=== PATIENT | female | born 1985 | race Caucasian/White ===

== ENCOUNTER 2020-04-30 09:55 | Emergency (ER) | payer OTHER, SELFPAY ==
--- NOTE | 2020-04-30 10:17 | ED.GENADULT ---
HPI - General Adult General Chief complaint: Upper Respiratory Infection Stated complaint: Swollen Throat Time Seen by Provider: 04/30/20 10:17 Source: patient Mode of arrival: ambulatory Limitations: no limitations History of Present Illness HPI narrative: 34-year-old female patient presents to the [facility] with complaints of left ear pain and left-sided sore throat x4 days. Patient states she was diagnosed with Covid on April 16. 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 Patient states that at the time that she was tested positive she had some body aches but not any other severe symptoms. Patient denies any fevers with her symptoms today. Patient states has been taking eldn-jle-pzeolgd DayQuil, NyQuil, Tylenol, ibuprofen and Sudafed for her symptoms. Related Data Home Medications Medication Instructions Recorded Confirmed amitriptyline 100 mg PO DAILY 04/30/20 04/30/20 amlodipine [Norvasc] 10 mg PO DAILY 04/30/20 04/30/20 metformin 1,000 mg PO BID 04/30/20 04/30/20 pisdogyteazv-ksn-bfzk-FA-vit K 1 tablet PO DAILY 04/30/20 04/30/20 [Adults Multivitamin] nebivolol [Bystolic] 10 mg PO DAILY 04/30/20 04/30/20 Allergies Allergy/AdvReac Type Severity Reaction Status Date / Time lisinopril AdvReac Cough Verified 04/30/20 10:39 losartan AdvReac Chest Pain Verified 04/30/20 10:39 Review of Systems Review of Systems: Narrative: CONSTITUTIONAL: Denies fever, chills, or sweats. EYES: Denies visual changes, redness, or discharge. ENT: Denies rhinorrhea, congestion, positive sore throat, positive left ear otalgia. CARDIOVASCULAR: Denies chest pain, palpitations, or edema. RESPIRATORY: Denies cough or dyspnea. GASTROINTESTINAL: Denies abdominal pain, nausea, vomiting, or diarrhea. GENITOURINARY: Denies dysuria or hematuria. SKIN: Denies rash or itching. MUSCULOSKELETAL: Denies back pain, joint pain, or myalgia. NEUROLOGIC: Denies headache, numbness, or weakness. PSYCHIATRIC: Denies anxiety or depression. FORMERLY [facility] Past Medical History Medical History (Updated 04/30/20 @ 10:52 by LUZ Lee) Hypertension Surgical History Surgical History (Updated 04/30/20 @ 10:52 by LUZ Lee) Hx of cholecystectomy Social History Social History (Updated 04/30/20 @ 10:52 by LUZ Lee) Smoking status: Current every day smoker Comments At the time of my signature I agree with nursing past medical history, surgical, social, and family history. There is no relevant family history pertinent to the presenting complaint. Exam Narrative: Exam Narrative: GENERAL: Well-appearing, well-nourished, and in no acute distress. HEAD: Normocephalic, atraumatic. EYES: PERRLA and EOMI. ENT: Nares clear, no rhinorrhea or epistaxis. Mucous membranes moist. Posterior pharynx with erythema and 2+ tonsil enlargement with exudates noted to the left tonsil. Bilateral TMs with erythema and slight bulging present. NECK: Supple. No lymphadenopathy CHEST: Clear to auscultation. No respiratory distress. Patient able talk in clear complete sentences. HEART: Regular rate and rhythm. No murmur heard. Normal peripheral pulses. ABDOMEN: Soft, nontender, nondistended, normal active bowel sounds. EXTREMITIES: Normal range of motion. No edema. SKIN: Warm, dry, no rash. NEURO: No focal deficits. Alert and oriented x3. Course Vital Signs Vital signs: Vital signs reviewed Medical Decision Making Differential Diagnosis Differential Diagnosis: Differential diagnosis: Viral pharyngitis, pharyngitis, group A strep, infectious mononucleosis, gonococcal pharyngitis, exudative pharyngitis, oral candidiasis. Chronic allergies, postnasal drip, GERD, abscess formation, but glottitis, retropharyngeal abscess formation, or airway obstruction. Notify patient that her bedside strep test today is negative. Discussed with patient that it does appear that she has bilateral ear infection therefore we
[2020-04-30 10:25] VITALS: BP 130/90; PULSE 80; RESP 20; TEMP 36.7; O2SAT 97
[2020-04-30 10:45] VITALS: BP 130/90; PULSE 80; RESP 20; TEMP 36.7; O2SAT 97
== END 2020-04-30 10:50 | disposition home or self-care (01) ==
PROVIDERS: Emergency Provider Nurse Practitioner Family
DX: H66.93 Otitis media, unspecified, bilateral (principal); J02.9 Acute pharyngitis, unspecified; Z86.16 Personal history of COVID-19; F17.200 Nicotine dependence, unspecified, uncomplicated; I10 Essential (primary) hypertension
CPT/HCPCS: 87081; 87880; 99213; G0463

== ENCOUNTER → 2020-08-17 12:20 | Outpatient (CLI) | payer OTHER, SELFPAY ==
--- NOTE | ~2020-08-17 | XR_ITS ---
EXAMINATION: XR knee LT 2V DATE: 08/17/2020 12:46 INDICATION: Left knee pain. TECHNIQUE: 2 views of left knee standing were obtained. COMPARISON: None. FINDINGS: Bone alignment is normal. No fracture. There is mild osteoarthritis of medial and lateral c ompartments and moderate osteoarthritis of patellofemoral compartment. There is a small knee joint ef fusion. IMPRESSION: 1. Moderate left knee osteoarthritis. 2. Small knee joint effusion. Reviewed, dictated and finalized at location B.
== END ==
DX: M25.462 Effusion, left knee (principal); M17.12 Unilateral primary osteoarthritis, left knee
CPT/HCPCS: 73560

== ENCOUNTER 2020-12-17 11:33 | Outpatient (CLI) | payer OTHER, SELFPAY ==
--- NOTE | ~2020-12-17 | US_ITS ---
EXAMINATION: XR lg joint inject/asp w image, US knee asp inj w image LT DATE: 12/17/2020 13:25 (accession [id number]), 12/17/2020 15:55 (accession [id number]) INDICATION: Left knee pain with patellofemoral arthritis. TECHNIQUE: A time-out was performed to verify the patient's name, date of , and procedure to b e performed. The procedure including the risks, benefits, and alternatives was discussed with the pat ient. Risks discussed included bleeding and infection. The patient understood the risks and agreed to proceed. The skin overlying the lateral aspect of the left knee joint was prepped and draped in usu al sterile fashion. Anesthetic was administered with 1% lidocaine subcutaneously. Initial attempt at advancing a 22 G needle utilizing fluoroscopic guidance was complicated by patient body habitus with limited ability to palpate or move the patella. Was therefore elected to utilize ultrasound to advan ce the needle into the lateral aspect of the patellofemoral articulation. Fluoroscopy following injec tion of 10 mL of Omnipaque 240 confirmed intra-articular position of the needle. Subsequently, injec pedro consisting of 4 mL of a 3:1 mixture of 1% lidocaine: 80 mg/mL Depo-Medrol for a total dose of 80 mg Depo-Medrol was instilled. Washout of contrast was seen confirming intra-articular administration . The needle was removed and the entry site was cleaned and dressed. There were no immediate complic ations. Fluoroscopy exposure time was 1.0 minutes. The total number of fluoroscopic images was 2. 4 u ltrasound images were also recorded. FINDINGS: Ultrasound images demonstrate the needle advanced to the lateral margin of the patellofemor al articulation. Real-time fluoroscopy demonstrates the needle and contrast in the left knee joint. P atient's pain prior to procedure:07/14. Patient's pain following the procedure: 05/16. IMPRESSION: 1. Left knee joint injection of local anesthetic and steroid with decrease in the patient's presentin g pain. Reviewed, dictated and finalized at location A. IMPRESSION: 1. Left knee joint injection of local anesthetic and steroid with decrease in t he patient's presenting pain.
== END 2020-12-17 11:34 | disposition home or self-care (01) ==
PROVIDERS: Visit Provider Orthopaedic Surgery
DX: M25.562 Pain in left knee (principal); M17.12 Unilateral primary osteoarthritis, left knee
CPT/HCPCS: 20610; 20611; 77002; J1040; Q9966

== ENCOUNTER 2021-01-04 11:12 | Emergency (ER) | payer OTHER, SELFPAY ==
[2021-01-04 11:25] VITALS: BP 156/94; PULSE 79; RESP 16; TEMP 36.6; O2SAT 99
--- NOTE | 2021-01-04 12:30 | ED.URI ---
HPI - URI/Sore Throat General Chief Complaint: Upper Respiratory Infection Stated Complaint: sore throat/ ear pain Time Seen by Provider: 01/04/21 12:25 Source: patient and RN notes reviewed Mode of arrival: ambulatory Limitations: no limitations History of Present Illness HPI Narrative: 35-year-old female presents to [facility] with complaints of right-sided sore throat, right ear pain which radiates to the jaw since yesterday. Patient has had no fever, denies any cough,or nasal drainage, she reports she was Covid tested at work this morning with negative results. Patient states that she has had COVID vaccinations. Patient states increased pain to her throat with swallowing rates pain as 6/10 continuous soreness, has taken Ibuprofen for her discomfort. MD elicited complaint: sore throat and other (ear pain) Related Data Home Medications Medication Instructions Recorded Confirmed amitriptyline 100 mg PO DAILY 04/30/20 01/04/21 amlodipine [Norvasc] 10 mg PO DAILY 04/30/20 01/04/21 metformin 1,000 mg PO BID 04/30/20 01/04/21 knealmmcalbr-cmr-ljjw-FA-vit K 1 tablet PO DAILY 04/30/20 01/04/21 [Adults Multivitamin] nebivolol [Bystolic] 10 mg PO DAILY 04/30/20 01/04/21 Allergies Allergy/AdvReac Type Severity Reaction Status Date / Time lisinopril AdvReac Cough Verified 01/04/21 11:40 losartan AdvReac Chest Pain Verified 01/04/21 11:40 Review of Systems Review of Systems: CONSTITUTIONAL: Denies fever, chills, or sweats. EYES: Denies visual changes, redness, or discharge. ENT: Denies rhinorrhea, congestion,positive for right sided sore throat,right otalgia and right jaw pain. CARDIOVASCULAR: Denies chest pain, palpitations, or edema. RESPIRATORY: Denies cough or dyspnea. GASTROINTESTINAL: Denies abdominal pain, nausea, vomiting, or diarrhea. GENITOURINARY: Denies dysuria or hematuria. SKIN: Denies rash or itching. MUSCULOSKELETAL: Denies back pain, joint pain, or myalgia. NEUROLOGIC: Denies headache, numbness, or weakness. PSYCHIATRIC Positive history of anxiety or depression. All systems reviewed & are unremarkable except as noted in HPI and below PMFSH Past Medical History Medical History Anxiety History of PCOS Hypertension Surgical History Surgical History (Updated 01/04/21 @ 12:37 by Kenyetta Hogue NP) Hx of cholecystectomy S/P wisdom tooth extraction Family History Family History (Updated 01/07/21 @ 13:55 by Kenyetta Hogue NP) Other No significant family history Social History Social History (Updated 01/07/21 @ 13:55 by Kenyetta Hogue NP) Smoking status: Former smoker Tobacco type: cigarettes Additional smoking assessment comments: quit 12/2020 Alcohol intake: current Alcohol use details: social Substance use: never Living arrangements: with family Gender identity (if verbalized by the patient): Female Comments At time of signature, agree with nursing past medical, surgical, social and family history. There is no relevant family history pertinent to the presenting complaint Exam Narrative: GENERAL: Well-appearing, well-nourished, and in no acute distress. HEAD: Normocephalic, atraumatic. EYES: PERRLA and EOMI. ENT: Nares clear, no rhinorrhea or epistaxis. Mucous membranes moist.TM's normal with good light reflex, throat red with noted exudates on bilateral tonsils with tonsils red and swollen. NECK: Supple. Lymphadenopathy CHEST: Clear to auscultation. No respiratory distress.SAO2 99% on room air HEART: Regular rate and rhythm. No murmur heard. Normal peripheral pulses. ABDOMEN: Soft, nontender, nondistended, normal active bowel sounds. EXTREMITIES: Normal range of motion. No edema.no states myalgia. SKIN: Warm, dry, no rash. NEURO: No focal deficits. Alert and oriented x3. Course Vital Signs Vital signs: Vital Signs Temperature 36.6 C 01/04/21 11:25 Pulse Rate 79 01/04/21 11:25 Respiratory Ra
== END 2021-01-04 12:59 | disposition home or self-care (01) ==
PROVIDERS: Emergency Provider Registered Nurse
DX: J03.90 Acute tonsillitis, unspecified (principal); Z87.891 Personal history of nicotine dependence; I10 Essential (primary) hypertension; E28.2 Polycystic ovarian syndrome; F41.9 Anxiety disorder, unspecified
CPT/HCPCS: 87081; 87880; 99213; G0463

== ENCOUNTER 2021-04-03 13:07 | Outpatient (CLI) | payer OTHER, SELFPAY ==
--- NOTE | ~2021-04-03 | XR_ITS ---
EXAMINATION: XR lg joint inject/asp w image DATE: 04/03/2021 14:56 INDICATION: Left knee arthritis and pain TECHNIQUE: A time-out was performed to verify the patient's name, date of , and procedure to b e performed. The procedure including the risks, benefits, and alternatives was discussed with the pat ient. Risks discussed included bleeding and infection. The patient understood the risks and agreed to proceed. The skin overlying the lateral side of the left knee joint was prepped and draped in usual sterile fashion. Anesthetic was administered with 1% lidocaine subcutaneously. A 22 G needle was a dvanced under fluoroscopic guidance into the joint. Injection of small amount of gas and 6 mL of Om nipaque 240 confirmed intra-articular position of the needle. Subsequently at the instruction of Dr. Ridley, 1 vial of Monovisc provided in sterile packaging by the patient was instilled. Washout of c ontrast was seen confirming intra-articular administration. The needle was removed and the entry site was cleaned and dressed. There were no immediate complications. Fluoroscopy exposure time was 0.4 mi nutes. The total number of images was 2. Total DAP was 1.969 mGycm^2. FINDINGS: Real-time fluoroscopy demonstrates the needle and contrast in the suprapatellar pouch of th e left knee joint. As previously there is suggestion of frog like filling defects consistent with syn ovitis. Patient's pain prior to procedure:07/14. Patient's pain following the procedure: 04/15. IMPRESSION: 1. Left knee joint injection of 1 vial of Monovisc with decrease in the patient's presenting pain. Reviewed, dictated and finalized at location A. 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 Left knee joint injection of 1 vial of Monovisc with decrease in the patient 's presenting pain.
== END 2021-04-03 13:08 | disposition home or self-care (01) ==
PROVIDERS: Visit Provider Orthopaedic Surgery
DX: M25.562 Pain in left knee (principal)
CPT/HCPCS: 20610; 77002; Q9966

== ENCOUNTER 2023-06-06 12:33 | Emergency (ER) | payer OTHER, SELFPAY ==
--- NOTE | ~2023-06-06 | XR_ITS ---
EXAMINATION: XR chest 2V DATE: 06/06/2023 13:44 INDICATION: Cough and wheezing. TECHNIQUE: Frontal and lateral views of the chest were obtained. COMPARISON: None. FINDINGS: There is no pneumonia, pleural effusion, or pneumothorax. The heart size is normal. IMPRESSION: 1. No acute cardiopulmonary disease. Reviewed, dictated and finalized at location A. 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
[2023-06-06 12:42] VITALS: BP 147/89; PULSE 73; RESP 16; TEMP 36.6; O2SAT 100
--- NOTE | 2023-06-06 13:37 | ED.GENADULT ---
HPI - General Adult General Chief complaint: Upper Respiratory Infection Stated complaint: Chest Congestion/Cough Source: patient Mode of arrival: ambulatory Limitations: no limitations History of Present Illness HPI narrative: Patient presents for evaluation of cough. She indicates she tested positive for COVID on 05/24/2023. Primary complaints at that time were sinus congestion fatigue. Those symptoms have improved. She now has productive cough of clear sputum. She denies any fever, chills, nausea, vomiting, diarrhea, shortness of breath. She smokes a few cigarettes per day but is trying to quit. She tried mucinex but it made her symptoms worse. Related Data Home Medications Medication Instructions Recorded Confirmed amitriptyline 100 mg tablet 100 mg PO DAILY 04/30/20 06/06/23 amlodipine 10 mg tablet (Norvasc) 10 mg PO DAILY 04/30/20 06/06/23 metformin 1,000 mg tablet 1,000 mg PO BID 04/30/20 06/06/23 multivit with minerals-iron 18 1 tablet PO DAILY 04/30/20 06/06/23 mg-folic ac 400 mcg-vit K 25 mcg tablet (Adults Multivitamin) nebivolol 10 mg tablet (Bystolic) 10 mg PO DAILY 04/30/20 06/06/23 atorvastatin 40 mg tablet 40 mg PO DAILY 06/06/23 06/06/23 pantoprazole 40 mg tablet,delayed 40 mg PO DAILY 06/06/23 06/06/23 release semaglutide 2 mg/dose (8 mg/3 mL) 2 mg subcut WEEKLY 06/06/23 06/06/23 subcutaneous pen injector (Ozempic) Allergies Allergy/AdvReac Type Severity Reaction Status Date / Time losartan AdvReac Severe Chest Pain Verified 06/06/23 13:27 lisinopril AdvReac Intermediate Cough Verified 06/06/23 13:27 Review of Systems Review of Systems: CONSTITUTIONAL: Denies fever, chills, or sweats. EYES: Denies visual changes, redness, or discharge. ENT: Denies rhinorrhea, congestion, sore throat, or otalgia. CARDIOVASCULAR: Denies chest pain, palpitations, or edema. RESPIRATORY: Reports productive cough clear sputum. Denies shortness of breath GASTROINTESTINAL: Denies abdominal pain, nausea, vomiting, or diarrhea. GENITOURINARY: Denies dysuria or hematuria. SKIN: Denies rash or itching. MUSCULOSKELETAL: Denies back pain, joint pain, or myalgia. NEUROLOGIC: Denies headache, numbness, dizziness, or weakness. PSYCHIATRIC: Denies anxiety or depression. 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 HEAD: Normocephalic, atraumatic. EYES: PERRLA and EOMI. ENT: Nares clear, no rhinorrhea or epistaxis. Mucous membranes moist. Oropharynx without tonsillar hypertrophy exudate or other lesions. Bilateral TMs pearly cleary nonbulging NECK: Supple. No adenopathy or masses. No carotid bruits or JVD CHEST: Clear to auscultation. No respiratory distress. No wheezes rales or rhonchi HEART: Regular rate and rhythm. No murmur heard. Normal peripheral pulses. ABDOMEN: Soft, nontender, nondistended, normal active bowel sounds. EXTREMITIES: Normal range of motion. No edema. SKIN: Warm, dry, no rash. NEURO: No focal d
== END 2023-06-06 14:22 | disposition home or self-care (01) ==
PROVIDERS: Emergency Provider Nurse Practitioner; PCP Family Medicine
DX: J06.9 Acute upper respiratory infection, unspecified (principal); Z87.891 Personal history of nicotine dependence; I10 Essential (primary) hypertension; E28.2 Polycystic ovarian syndrome
CPT/HCPCS: 71046; 99213; G0463

== ENCOUNTER 2023-06-12 08:02 | Emergency (ER) | payer OTHER, SELFPAY ==
[2023-06-12 08:10] VITALS: BP 130/77; PULSE 88; RESP 18; TEMP 36.7; O2SAT 99
--- NOTE | 2023-06-12 08:35 | ED.URI ---
HPI - URI/Sore Throat General Chief Complaint: Upper Respiratory Infection Stated Complaint: Ear Pain/Sore Throat Time Seen by Provider: 06/12/23 08:15 Source: patient Mode of arrival: ambulatory Limitations: no limitations History of Present Illness HPI Narrative: 38 year female presents with complaint mild nasal congestion, postnasal drainage, sore throat, throat swelling, bilateral ear pain for 2 days. Afebrile. Patient reports that she had COVID mid May and has well since. Was seen here last week and given albuterol inhaler and benzonatate, reports cough improved. All systems reviewed and negative except as noted above. Related Data Home Medications Medication Instructions Recorded Confirmed amitriptyline 100 mg tablet 100 mg PO DAILY 04/30/20 06/06/23 amlodipine 10 mg tablet (Norvasc) 10 mg PO DAILY 04/30/20 06/06/23 metformin 1,000 mg tablet 1,000 mg PO BID 04/30/20 06/06/23 multivit with minerals-iron 18 1 tablet PO DAILY 04/30/20 06/06/23 mg-folic ac 400 mcg-vit K 25 mcg tablet (Adults Multivitamin) nebivolol 10 mg tablet (Bystolic) 10 mg PO DAILY 04/30/20 06/06/23 atorvastatin 40 mg tablet 40 mg PO DAILY 06/06/23 06/06/23 pantoprazole 40 mg tablet,delayed 40 mg PO DAILY 06/06/23 06/06/23 release semaglutide 2 mg/dose (8 mg/3 mL) 2 mg subcut WEEKLY 06/06/23 06/06/23 subcutaneous pen injector (Ozempic) Allergies Allergy/AdvReac Type Severity Reaction Status Date / Time losartan AdvReac Severe Chest Pain Verified 06/06/23 13:27 lisinopril AdvReac Intermediate Cough Verified 06/06/23 13:27 Review of Systems Review of Systems: CONSTITUTIONAL: Denies fever, chills, or sweats. EYES: Denies visual changes, redness, or discharge. ENT: Reports rhinorrhea, congestion, sore throat, bilateral ear pain. CARDIOVASCULAR: Denies chest pain, palpitations, or edema. RESPIRATORY: Denies cough or dyspnea. GASTROINTESTINAL: Denies abdominal pain, nausea, vomiting, or diarrhea. GENITOURINARY: Denies dysuria or hematuria. SKIN: Denies rash or itching. MUSCULOSKELETAL: Denies back pain, joint pain, or myalgia. NEUROLOGIC: Denies headache, numbness, or weakness. PSYCHIATRIC: Denies anxiety or depression. All other systems reviewed are negative, except as documented in HPI. 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 There is no relevant family history pertinent to the presenting complaint. Exam Narrative: GENERAL: This is a well-nourished, well-developed patient, in no apparent distress. HEAD: normocephalic, atraumatic. EYES: PERRL. Sclera clear/white. Vision is grossly intact. EARS: External ears normal, auditory canals clear and without drainage, fluid bilateral TMs with mild bulging and erythema, no perforation bilaterally. Hearing grossly intact. NOSE: External nose normal with clear nasal drainage with congestion, erythema and swelling to bilateral nares. THROAT: Mucous membranes moist, erythe
== END 2023-06-12 08:30 | disposition home or self-care (01) ==
PROVIDERS: Emergency Provider Nurse Practitioner Family; PCP Family Medicine
DX: H65.03 Acute serous otitis media, bilateral (principal); J02.9 Acute pharyngitis, unspecified; I10 Essential (primary) hypertension; F41.9 Anxiety disorder, unspecified; F17.210 Nicotine dependence, cigarettes, uncomplicated
CPT/HCPCS: 87081; 87880; 99213; G0463

== ENCOUNTER 2024-07-30 14:13 | Emergency (ER) | payer SELFPAY ==
--- OUTSIDE RECORDS SUMMARY | 2024-07-30 14:16 | XMS_ITS | Clinical Summary ---
Author Organization [facility] Address [address] [place] [address] Phone Care Team Providers Care Sports Equipment Supervisor Name Role Phone Tony Patel MD Primary Care Provider [phone] Dilan Turk MD Unavailable Suly Gerber APRN, FUR DRUMMER Unavailable Mita Avila CLINICAL OFFICE TECHNICIAN, FUR DRUMMER Unavailable [phone] Allergies Active Allergy Reactions Criticality Noted Date Comments Brassica Oleracea Shortness of Breath,Rash,Swelling High 12/16/2018 Trouble breathing Flavoring Agent (Non-Screening) Hives,Rash High 12/16/2018 Grapefruit Extract Hives,Rash,Itching High 9 Lisinopril Other (see Comments) High 03/10/2017 cough Other reaction(s): Cough Losartan Palpitations,Other (see Comments) High 03/10/2017 Other reaction(s): Headache, Nausea and/or Vomiting Makes her feel like a heart attack Hypertension worsened. Other-Food Allergen (Not Found In Search) Hives,Rash,Itching High 05/06/2020 Cauliflower Red Dye #40 (Allura Red) Diarrhea High 03/17/2023 Wasp Venom Other (see Comments),Shortness of Breath,Swelling High 11/04/2008 Medications multi-vitamins (Multivitamin Adult) Tablet 3 Active Cholecalciferol (Vitamin D) 2000 UNIT Tablet 2 Active atorvastatin (LIPITOR) 40 MG Tablet 2 Active amitriptyline (ELAVIL) 100 MG Tablet Take 100 mg by mouth. 9 Active acetaminophen (TYLENOL) 500 MG Tablet Take 500-1,000 mg by mouth every 6 hours as needed. 1 Active IBUPROFEN PO Take by mouth. Ac tive nicotine (NICODERM CQ) 21 MG/24HR PATCH 24 HRIndications:T obacco abuse 1 Patch by Transdermal route every 24 hours for 45 days. 45 Patch 3 Active Additional Information Patient not taking.Reported on 04/02/2023 nicotine (NICODERM CQ) 14 MG/24HR PATCH 24 HRIndications:T obacco abuse 1 Patch by Transdermal route every 24 hours for 14 days. 14 Patch 4 Active Additional Information Patient not taking.Reported on 04/02/2023 nicotine (NICODERM CQ) 7 MG/24HR PATCH 24 HRIndications:T obacco abuse 1 Patch by Transdermal route every 24 hours for 14 days. 14 Patch 4 Active Additional Information Patient not taking.Reported on 04/02/2023 colestipol (COLESTID) 1 GM TabletIndicatio ns:Watery diarrhea Take 1 Tablet by mouth 2 times daily. 90 Tablet 3 Active Additional Information Patient not taking.Reported on 2024 metFORMIN (GLUCOPHAGE) 500 MG Tablet Take 1 Tablet by mouth 2 times daily. 180 Tablet 1 4 Active albuterol 108 (90 Base) MCG/ACT Aerosol Solution take 2 Puffs by inhalation every 6 hours as needed for Wheezing or Cough. 18 g 1 4 Active Tirzepatide (Mounjaro) 10 MG/0.5ML Solution Auto-injector 10 mg by Subcutaneous route once a week. 6 mL 5 Active amitriptyline (ELAVIL) 100 MG Tablet Take 1 Tablet by mouth nightly. 90 Tablet 3 5 Active amLODIPine (NORVASC) 10 MG Tablet Take 1 Tablet by mouth daily. 90 Tablet 3 5 Active atorvastatin (LIPITOR) 40 MG Tablet Take 1 Tablet by mouth daily. 90 Tablet 3 5 Active cyclobenzaprine (FLEXERIL) 10 MG Tablet Take 1 Tablet by mouth 3 times daily as needed for Muscle spasms. 30 Tablet 5 Active Nebivolol HCl 10 MG Tablet Take 1 Tablet by mouth daily. 90 Tablet 3 5 Active pantoprazole (PROTONIX) 40 MG Tablet Delayed Response Take 1 Tablet by mouth daily. 90 Tablet 3 5 Active Active Problems Problem Noted Date Diagnosed Date Anxiety 2024 Hyperlipidemia 12/01/2023 COVID-19 05/26/2023 PCOS (polycystic ovarian syndrome) 03/24/2023 Class 3 severe obesity due t o excess calories with serious comorbidity and body mass index (BMI) of 60.0 to 69.9 in adult 03/24/2023 Type 2 diabetes mellitus wit hout complication, without long-term current use of insulin 03/24/2023 Tobacco abuse 03/24/2023 Watery diarrhea 03/24/2023 Nausea and vomiting 03/24/2023 Primary hypertension 03/24/2023 Encounters Date Type Department Care Team Description 06/06/2024 Results [facility] [address] [place] [address] Tony Patel MD LIPID PANEL 2024 10:30 AM NURSE COMPANION Office Visit [facility] [address] [place] [address] Tony Patel MD Anxiety (Primary Dx); Primary hypertension; Hyperlipidemia, unspecified hyperlipidemia type Discharge Disposition: Discharged to home or Selfcare 2024 9:45 AM NURSE COMPANION Office Visit [facility] Endocrinology [facility] [address] [facility] [place] [address] Dilan Turk MD Type 2 diabetes mellitus without complication, without long-term current use of insulin (HCC) (Primary Dx); Class 3 severe obesity due to excess calories with serious comorbidity and body mass index (BMI) of 60.0 to 69.9 in adult (HCC); Medication dose changed; Medication side effect Discharge Disposition: Discharged to home or Selfcare 06/01/2024 Travel 05/27/2024 Refill [facility] [address] [place] [address] Tony Patel MD Medication Refill 05/19/2024 Refill [facility] [address] [place] [address] Tony Patel MD Medication Refill 05/18/2024 Telephone [facility] [address] [place] [phone] Tony Patel MD Advice Only from Last 3 Months Immunizations Immunization Administration Dates Next Due Covid-19, Mrna, Lnp-s, Pf, 1 00 Mcg Or 50 Mcg Dose (MODERNA) 02/05/2021,06/18/2020,05/24/2020 DTAP VACCINE 06/06/2008,10/23/1995,10/19/1990 Hepatitis B Vaccine 02/19/2009,08/12/2005 Inactivated Polio Vaccine 10/23/1995,10/19/1990 Influenza Vaccine,unspecified Formulation 2023,02/04/2022,01/04/2017 MMR Vaccine 10/23/1995 TB Skin Test 07/28/2016,07/21/2016 TD VACCINE 06/20/2008 TDAP Vaccine 05/03/2018,06/06/2008 Td, Unspecified Formulation 06/20/2008 Tuberculin Skin Test; Purifi ed Protein Derivative Solutiol 07/28/2016,07/21/2016 Family History Medical History Relation Name Comments High Cholesterol Brother 1 Lucas Hypertension Brother 1 Lucas Obstructive Sleep Apnea Brother 1 Lucas Ulcerative Colitis Brother 1 Lucas High Cholesterol Brother 2 Mike Hypertension Brother 2 Mike Obstructive Sleep Apnea Brother 2 Mike Heart Attack Father [place] Heart Disease Father Se[place] Heart Surgery Father [place] Dementia Mother Rebecca small vascular dementia Diabetes Mother Rebecca High Cholesterol Mother Rebecca Hypertension Mother Rebecca Polycystic Ovarian Syndrome Niece Rheumatoid Arthritis Paternal Grandfather Genaro Polycystic Ovarian Syndrome Sister 1 Tri Bipolar Disorder Sister 2 Carlene Hypertension Sister 2 Carlene Polycystic Ovarian Syndrome Sister 2 Carlene Cancer Sister 3 Nia Cancer found in appendix Heart Attack Sister 3 Nia High Cholesterol Sister 3 Nia Polycystic Ovarian Syndrome Sister 3 Nia High Cholesterol Sister 4 Juanis Polycystic Ovarian Syndrome Sister 4 Juanis Relation Name Status Comments Brother 1 Lucas Alive Brother 2 Mike Alive Father Sekou Mother Rebecca Alive Niece Alive Paternal Grandfather Genaro Sister 1 Tri Alive Sister 2 Carlene Alive Sister 3 Nia Alive Sister 4 Juanis Alive Social History Tobacco Use Types Packs/Day Years Used Date Smoking Tobacco: Every Day Cigarettes Smokeless Tobacco: Never Tobacco Cessation:Ready to Q uit: Yes; Counseling Given: Yes Alcohol Use Standard Drinks/Week Comments Not Currently 0 (1 standard drink = 0.6 oz pur e alcohol) [facility] Utilities Answer Date Recorded In the past 12 months has th e electric, gas, oil, or water company threatened to shut off services in your home? Patient declined 06/01/2024 Social Connection and Isolation Panel [NHANES] A nswer Date Recorded In a typical week, how many times do you talk on the phone with family, friends, or neighbors? Patient declined 06/01/2024 How often do you get togethe r with friends or relatives? Patient declined 06/01/2024 How often do you attend scientologist or pentecostalism serv ices? Patient declined 06/01/2024 Do you belong to any clubs o r organizations such as scientologist groups, unions, fraternal or athletic groups, or school groups? Patient declined 06/01/2024 How often do you attend meet ings of the clubs or organizations you belong to? Patient declined 06/01/2024 Are you , , di vorced, , never , or living with a partner? Patient declined 06/01/2024 AUDIT-C Answer Date Recorded Q1: How often do you have a drink containing alc ohol? Patient declined 06/01/2024 Q2: How many drinks containi ng alcohol do you have on a typical day when you are drinking? Patient declined 06/01/2024 Q3: How often do you have si x or more drinks on one occasion? Patient declined 06/01/2024 Overall Financial Resource Strain (CARDIA) Answe r Date Recorded How hard is it for you to pa y for the very basics like food, housing, medical care, and heating? Not hard at all 06/01/2024 PHQ-2 Answer Date Recorded Total Score - Questions 1-9 0 05/08 [facility] - Occupational Stress Questionnaire Answer Date Recorded Do you feel stress - tense, restless, nervous, or anxious, or unable to sleep at night because your mind is troubled all the time - these days? Patient declined 06/01/2024 Exercise Vital Sign Answer Date Recorde d On average, how many days pe r week do you engage in moderate to strenuous exercise (like a brisk walk)? 5 days 06/01/2024 On average, how many minutes do you engage in exercise at this level? 30 min 06/01/2024 Hunger Vital Sign Answer Date Recorded Within the past 12 months, y ou worried that your food would run out before you got the money to buy more. Patient declined Within the past 12 months, t he food you bought just didn't last and you didn't have money to get more. Patient declined PRAPARE - Transportation Answer Date Re corded In the past 12 months, has l ack of transportation kept you from medical appointments or from getting medications? No 05/08 In the past 12 months, has l ack of transportation kept you from meetings, work, or from getting things needed for daily living? No 06/01/2024 Housing Stability Vital Sign Answer Miguel A e Recorded In the last 12 months, was t here a time when you were not able to pay the mortgage or rent on time? No 03/18/2023 In the last 12 months, how many places have you lived? 1 03/18/2023 In the last 12 months, was t here a time when you did not have a steady place to sleep or slept in a custodial (including now)? No 03/18/2023 Housing Stability Vital Sign Answer Miguel A e Recorded In the last 12 months, was t here a time when you were not able to pay the mortgage or rent on time? No 06/01/2024 In the past 12 months, how m any times have you moved where you were living? 0 06/01/2024 At any time in the past [address] [facility], were you homeless or living in a custodial (including now)? No 06/01/2024 Sexually Active Control Partners Comments Yes Male Comments No Sex and Gender Information Value Date Recorded Sex Assigned at Not on file Legal Sex Female 10:44 PM CDT Gender Identity Not on file Sexual Orientation Not on file Last Filed Vital Signs Vital Sign Reading Time Taken Comments Blood Pressure 116/70 2024 10:05 AM NURSE COMPANION Pulse 90 2024 10:05 AM NURSE COMPANION Temperature 36.4 C (97.5 F) 2024 10:05 AM NURSE COMPANION Respiratory Rate 22 2024 9:29 AM NURSE COMPANION Oxygen Saturation 96% 2024 10:05 AM NURSE COMPANION Inhaled Oxygen Concentration - - Weight 178.7 kg (394 lb) 2024 10:05 AM NURSE COMPANION Height 167.6 cm (5' 6 ) 2024 10:05 AM NURSE COMPANION Body Mass Index 63.59 2024 10:05 AM NURSE COMPANION Plan of Treatment Upcoming Encounters Date Type Department Care Team (Late st Contact Info) Description 09/01/2024 10:30 AM CDT Office Visit [facility] [address] [place] [address] Dilan Turk MD [address] [facility] [address] [place] [address] 09/21/2024 9:00 AM CDT Office Visit [facility] [place] [address] [place] [address] Tony Patel MD [address] [facility] [address] [place] [address] Health Maintenance Due Date Last Done Comments Diabetes: Eye Exam 1985 Hepatitis C Virus (HCV) Screening 1985 Pneumococcal Immunization Combined (1 of 2 - PCV) 2004 Hepatitis B Immunization (3 of 3 - 19+ 3-dose series) 04/16/2009 02/19/2009, 08/12/2005 SARS-COV-2 Immunization ( season) 2023 02/05/2021, 06/18/2020, 05/24/2020 Diabetes: Nephropathy Screening 11/29/2024 11/30/2023, 11/28/2023, 03/25/2023, Additional history exists Diabetes: Hemoglobin A1c 11/30/2024 025, 02/29/2024, 11/27/2023, Additional history exists Diabetes: Foot Exam 2025 2024 Pap Smear 03/22/2027 03/22/2024 DTaP/Tdap/Td Immunization (8 - Td or Tdap) 05/03/2028 05/03/2018, 06/20/2008, 06/20/2008, Additional history exists Cervical Cancer Screening (CCS) 03/22/2029 HPV/Cotest 03/22/2029 03/22/2024 Respiratory Syncytial Virus (RSV) Immunization (Adult) (1 - 1-dose 75+ series) 2060 Influenza Immunization Completed , 02/04/2022, 01/04/2017 Meningococcal Immunization (ACWY) Aged Out No longer eligible based on patient's age to complete this topic Rotavirus Immunization Aged Out No lo nger eligible based on patient's age to complete this topic Procedures Procedure Name Priority Date/Time Associated Diagnosis Comments POCT GLYCOSYLATED HEMOGLOBIN Routine 2024 9:34 AM NURSE COMPANION Type 2 diabetes mellitus without complication, without long-term current use of insulin (HCC) SYPHILIS IGG/IGM W/REFLEX Routine 06/01/2024 8:58 AM NURSE COMPANION Screening examination for STI LIPID PANEL Routine 06/01/2024 8:58 AM NURSE COMPANION Hyperlipidemia, unspecified hyperlipidemia type HUMAN PAPILLOMA VIRUS (HPV) Routine 03/22/2024 10:44 AM NURSE COMPANION Screening for malignant neoplasm of cervix PATHOLOGY CYTOLOGY BIBLICAL LANGUAGES PROFESSOR Routine 03/22/2024 10:44 AM NURSE COMPANION Screening for malignant neoplasm of cervix UR MICROALBUMIN/CREATIN INE RATIO RANDOM Routine 11/30/2023 9:24 AM CDT Healthcare maintenance (Adult) Type 2 diabetes mellitus without complication, without long-term current use of insulin (HCC) from Last 3 Months or Most Recently Relevant to Health Maintenance Results * POCT GLYCOSYLATED HEMOGLOBIN (2024 9:34 AM NURSE COMPANION) HGB-A1C 5.5 4 - 6 % Blood 2024 9:34 AM NURSE COMPANION us Dilan Turk MD POINT OF CARE TESTING (MANUAL) F inal Result * SYPHILIS IGG/IGM W/REFLEX (06/01/2024 8:58 AM NURSE COMPANION) Pathologist [facility] SYPHILIS IGG/IGM Nonreactive Nonreactive 06/01/2024 10:00 PM NURSE COMPANION [facility] Comment: No serologic evidence of infection to Treponema pallidum (syphilis). Repeat testing may be considered in patients with suspected acute or primary syphilis in 2 to 4 weeks. Antibody testing was performed by multiplex flow immunoassay on the [employer] platform. Blood Venipuncture / Unknown 06/01/2024 8:58 AM NURSE COMPANION 06/01/2024 10:30 AM NURSE COMPANION us Mita Avila CLINICAL OFFICE TECHNICIAN, FUR DRUMMER IMMUNOLOGY ORDERABLES Fi nal Result [facility] [address] [place] [address], * (ABNORMAL) LIPID PANEL (06/01/2024 8:58 AM NURSE COMPANION) CHOLESTEROL 138 <200 mg/dL 06/01/2024 11:12 AM NURSE COMPANION [facility] TRIGLYCERIDES 179(H) <150 mg/dL 06/01/2024 11:12 AM NURSE COMPANION [facility] HDL CHOLESTEROL 37(L) >40 mg/dL 11:12 AM NURSE COMPANION [facility] LDL 65 <130 mg/dL 06/01/2024 11:12 AM NURSE COMPANION [facility] VLDL 36 10 - 50 mg/dL 06/01/2024 11:12 AM [facility] CHOL/HDL RATIO 3.7 0.0 - 4.4 06/01/2024 11:12 AM NURSE COMPANION [facility] NON-HDL CHOLESTEROL 101 <130 mg/dL 06/01/2024 11:12 AM [facility] IS THE PATIENT REQUIRED TO BE FASTING? Yes 06/01/2024 11:12 AM [facility] HAS THE PATIENT BEEN FASTING? Yes 06/01/2024 11:12 AM [facility] Blood Venipuncture / Unknown 06/01/2024 8:58 AM NURSE COMPANION 06/01/2024 10:30 AM NURSE COMPANION Tony Patel MD CHEMISTRY ORDERABLES Denise morgan Result [facility] [address] [place] [address] * PATHOLOGY CYTOLOGY BIBLICAL LANGUAGES PROFESSOR (03/22/2024 10:44 AM NURSE COMPANION) SPECIMEN ADEQUACY Satisfactory for evaluation. Endocervical/transf ormation zone component is absent. 04/01/2024 12:20 PM [facility] DESCRIPTIVE DIAGNOSIS NEGATIVE FOR INTRAEPITHELIAL LESIONS OR MALIGNANCY. 04/01/2024 12:20 PM [facility] at 1220 NURSE COMPANION Automated Examination Analysis of this sample has been assisted by an automated imaging and review system ([employer] Imaging System, [employer], [place], [place]). This case is further evaluated and finalized by a assistant attorney general and/or pathologist. 04/01/2024 12:20 PM [facility] Disclaimer The PAP smear is a screening test designed to detect cancerous or precancerous cells of the uterine cervix. It is one of the best means available for detection of cervical cancer but still carries an inherent false-negative rate. The consequences of a false-negative PAP result can be minimized by adhering to current screening guidelines. The following are general guidelines recommended by the ACS, ASCP, ASCCP, and ACOG: PAP testing is recommended every three years for women 21-29, Co-Testing , a PAP test in conjunction with an HPV (Human Papillomavirus) test for women ages 30-65, and no PAP or HPV testing for women under the age of 21 or older than 65 unless clinically indicated. 04/01/2024 12:20 PM NURSE COMPANION [facility] Case Report Gynecologic Cytology Report Case: [id number] Authorizing Provider: Mita Avila APRN, CNP Collected: 03/22/2024 10:44 AM Ordering Location: [facility] - Received: 03/22/2024 10:44 AM [facility] - [place] First Screen: Natalia Raman Rescreen: Luisa Sorenson Specimen: TP Screen, Cervix/Endocervix 04/01/2024 12:20 PM NURSE COMPANION [facility] Other CERVIX UTERI STRUCTURE / Unknown Non-Phlebotomy Collection / Unknown 03/22/2024 10:44 AM NURSE COMPANION 03/22/2024 10:44 AM NURSE COMPANION us Mita Avila APRN, CNP PATHOLOGY/CYTOLOGY ORDER ISAAC Final Result [facility] [address] [place] [address], * HUMAN PAPILLOMA VIRUS (HPV) (03/22/2024 10:44 AM NURSE COMPANION) HPV TYPE 16 NEGATIVE NEGATIVE 03/23/2024 12:09 PM NURSE COMPANION [facility] Comment: A negative high-risk HPV result does not exclude the possibility of future cytologic HSIL or underlying CIN2-3 or cancer. The presence of PCR inhibitors may cause false negative or invalid results. If concentrations of whole blood in the sample exceed 10% (dark red or brown coloration) in PreservCyt solution, there is a likelihood of obtaining a false-negative result. HPV TYPE 18 NEGATIVE NEGATIVE 03/23/2024 12:09 PM NURSE COMPANION [facility] Comment: A negative high-risk HPV result does not exclude the possibility of future cytologic HSIL or underlying CIN2-3 or cancer. The presence of PCR inhibitors may cause false negative or invalid results. If concentrations of whole blood in the sample exceed 10% (dark red or brown coloration) in PreservCyt solution, there is a likelihood of obtaining a false-negative result. HPV OTHER HIGH RISK TYPES, PCR NEGATIVE NEGATIVE 03/23/2024 12:09 PM [facility] Comment: The following Other High Risk types were not detected: 31, 33, 35, 39, 45, 51, 52, 56, 58, 59, 66, and 68. A negative high-risk HPV result does not exclude the possibility of future cytologic HSIL or underlying CIN2-3 or cancer. The presence of PCR inhibitors may cause false negative or invalid results. If concentrations of whole blood in the sample exceed 10% (dark red or brown coloration) in PreservCyt solution, there is a likelihood of obtaining a false-negative result. HPV ORDER BE USED FOR SCREENING OR DIAGNOSTIC SCREENING 03/23/2024 12:09 PM [facility] Other Non-Phlebotomy Collection / Unknown 03/22/2024 10:44 AM NURSE COMPANION 03/22/2024 10:44 AM [facility] Narrative [facility] - 03/23/2024 12:09 PM [facility] This test was performed using MARIANO 5800 Real Time PCR. us Mita Avila CLINICAL OFFICE TECHNICIAN, FUR DRUMMER LAB SEND OUTS Final Re sult [facility] [address] [facility] [place] [address], [facility] [address] [place] [address] * UR MICROALBUMIN/CREATININE RATIO RANDOM (11/30/2023 9:24 AM CDT) RAN UR MICROALBUMIN 0.71 mg/dL 11/30/2023 11:13 AM CDT [facility] Comment:No reference range h as been established. Consider Clinical Correlation. CREATININE URINE 153.4 mg/dL 11/30/19 11:13 AM CDT [facility] Comment:No reference range h as been established. Consider Clinical Correlation. ALB/CREAT RATIO 5 0 - 30 mg/g CRE 11/30/2023 11:13 AM CDT [facility] Urine Non-Phlebotomy Collection / Unknown 11/30/2023 9:24 AM CDT 11/30/2023 10:54 AM CDT us Dilan Turk MD URINE ORDERABLES Final Result [facility] [address] [place] [address] from Last 3 Months or Most Recently Relevant to Health Maintenance Insurance [facility] COMPMANAGEMENT Care Teams Sports Equipment Supervisor Relationship Specialty Start Date End Date Tony Patel MD [address] [facility] [address] [place] [address] PCP - General Family Medicine 03/24/23 Dilan Turk MD [address]2 [facility] [address] [place] [address] Consulting Physician Endocrinology 05/28/23 Suly Gerber APRN, FUR DRUMMER [address] [place] [address] Nurse Practitioner Advanced Practice Nurse 04/02/23 Mita Avila, CLINICAL OFFICE TECHNICIAN, FUR DRUMMER [address] [place] [address] Nurse Practitioner Advanced Practice Nurse 03/16/24
--- OUTSIDE RECORDS SUMMARY | 2024-07-30 14:16 | XMS_ITS ---
Author Organization [facility] Address [address] [place] [address] Care Team Providers Care Fixed Route Bus Operator Name Role Phone Layo Siu Primary Care Provider REASON FOR VISIT New Patient Psych Eval Encounters Encounter Location Date Provider Diagnosis [address] [place] [address] 01/28/2024 Layo Siu Plan Of Treatment No Information Progress Notes * Todd LAMOB:1985 ( 39 yo F)Acc No.[id number]:01/28/2024 UNLOCKED PROGRESS NOTE Patient: Damaris GORDON Provider: DADA Be :1985 A ge:38 Y S ex:Female Date:01/28/2024 Address:[address] [place], [place] [id number] Subjective: * Chief Complaints: * 1 . New Patient Psych Eval. * Medical History: Objective: * Vitals: Assessment: Plan: * Treatment: * * Electronic signature of Arline Siu on 07/30/2024 at 02:16 PM CDT Sign off status: Pending * Provider: DADA Be Date: Generated for Mango soto/Pablo/eTransmitting on: 0 07/30/2024 02:16 PM CDT
--- OUTSIDE RECORDS SUMMARY | 2024-07-30 14:16 | XMS_ITS | Clinical Summary ---
Author Organization [facility] ki work Address [address] [place] [address] Care Team Providers Care Rock Climbing Team Member Name Role Phone Mili Cuevas MD Unavailable [phone] Pcp, Rita Lee Im-Fm Primary Care Provid er Unavailable Tony Patel MD Unavailable [phone] Source Comments [facility] ki work,non-owned Affiliates and Associated Physician Practices is amultiple site organization consisting of ambulatory clinics and hospital sitesin [place], [place], [place] and [place]. This disclosure is being madepursuant to the Care Everywhere program and may not contain all information available regarding this patient. Last updated 17.[facility] ki work Allergies Active Allergy Reactions Criticality Noted Date Comments Flavoring Agent Rash Medium 12/16/2018 Brassica Oleracea Italica Rash Medium 12/16/2018 Grapefruit Extract Rash Medium 12/16/2018 Lisinopril Cough 12/16/2018 Losartan Nausea and/or Vomiting,Headache,Pal pitations 12/16/2018 Makes her feel like a heart attack Wasp Venom Dizziness,Headache,N a usea and/or Vomiting,Shortness of Breath,Swelling,Wheez ing High 11/04/2008 Medications * Be aware that medications may not be up to date on this document. Alwaysverify current medications with the patient. albuterol HFA (PROVENTIL;FLORIN AZUL;PROAIR) 108 (90 Base) MCG/ACT inhaler Inhale 2 puffs by mouth every 4 hours as needed for Shortness of Breath, Wheezing or Cough 1 Inhaler 07/18/19 20 Active Multiple Vitamin (MULTI-VITAMIN PO) Active metFORMIN ER 24hr (Glucophage XR) 500 MG tabletIndication s:PCOS (polycystic ovarian syndrome) TAKE 2 TABLETS BY MOUTH TWICE DAILY WITH MORNING AND EVENING MEALS 360 tablet 1 12/31/19 22 Active Blood Glucose Monitoring Suppl (Accu-Chek Guide) w/Device KITIndications:T ype 2 diabetes mellitus with hyperglycemia, without long-term current use of insulin ([facility]) Use 1 Each as directed 1 Each 05/16/19 23 Active blood glucose (Accu-Chek Guide) test stripIndications :Type 2 diabetes mellitus with hyperglycemia, without long-term current use of insulin ([facility]) Use 1 (one) strip daily before breakfast 100 strip 5 05/16/19 23 Active SOFTCLIX LANCETS MISCIndications: Type 2 diabetes mellitus with hyperglycemia, without long-term current use of insulin ([facility]) Use 1 device once daily 100 Each 11 05/16/19 23 Active cyclobenzaprine (Flexeril) 10 MG tablet Take 1 (one) tablet by mouth 3 times daily as needed for Muscle Spasms 20 tablet 5 08/05/19 23 Active naproxen (Naprosyn) 500 MG tablet Take 1 (one) tablet by mouth 2 times daily 180 tablet 09/05/19 23 Active vitamin D, cholecalciferol, 50 MCG (1999) tablet Take 1 (one) tablet by mouth once daily Active amLODIPine (Norvasc) 10 MG tabletIndication s:Essential hypertension Take 1 (one) tablet by mouth once daily 90 tablet 3 10/21/19 23 Active amitriptyline (Elavil) 100 MG tabletIndication s:Generalized anxiety disorder Take 1 (one) tablet by mouth at bedtime 90 tablet 3 10/21/19 23 Active atorvastatin (Lipitor) 40 MG tablet Take 1 (one) tablet by mouth once daily 90 tablet 2 10/21/19 23 Active nebivolol (Bystolic) 10 MG tabletIndication s:Essential hypertension Take 1 (one) tablet by mouth once daily 90 tablet 3 10/21/19 23 Active Semaglutide (2 MG/DOSE) 8 MG/3ML Subcutaneous Solution Pen-injector (Ozempic (2 MG/DOSE)) Inject 2 (two) mg subcutaneously every 7 days 3 mL 9 09/01/20 23 Active Active Problems Problem Noted Date Diagnosed Date Type 2 diabetes mellitus wit h hyperglycemia, without long-term current use of insulin 05/09/2022 Diverticulosis 04/10/2022 Screen for colon cancer 01/08/2022 HTN (hypertension) 01/08/2022 Mild intermittent asthma without complication Vitamin B 12 deficiency 06/18/2021 Class 3 severe obesity due t o excess calories with serious comorbidity and body mass index (BMI) greater than or equal to 70 in adult 11/10/2016 Overview (06/18/2021): Last Assessment & Plan: BMI Follow-up includes: nutrition counseling and exercise counseling. Pt encourage to lose 20lbs.or 5% of her body weight. 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 Generalized anxiety disorder 03/21/2002 Overview (06/18/2021): Last Assessment & Plan: Stable on bupropion and lorazepam. Non-seasonal allergic rhinitis due to fungal spo res Resolved Problems Problem Noted Date Diagnosed Date Resolved Date Glucose intolerance (impaire d glucose tolerance) 06/18/2021 05/09/2022 Hand pain 08/16/2015 06/18/2021 Immunizations Immunization Administration Dates Next Due Covid Moderna primary monova lent 12+ yr 0.5mL 02/05/2021,06/18/2020,05/24/2020 DTaP VACCINE IM (6wk-6yrs) 06/06/2008,10/23/1995 ,10/19/1990 HEP B VACCINE, ADULT 3 DOSE 02/19/2009, 6 INFLUENZA VACCINE 02/04/2022,01/04/2017 MMR 10/23/1995 POLIO IPV 10/23/1995,10/19/1990 TD VACCINE 06/20/2008 TDAP (7yrs+) 05/03/2018,06/06/2008 Td (Adult), 2 Lf Tetanus Tox oid, Adsorbed, Pf 06/20/2008 Family History Medical History Relation Name Comments Asthma Brother Hyperlipidemia Brother Hypertension Brother Sleep Disorder - Other Brother CAD (Coronary Artery Disease) Father Depression Mother Diabetes - Type 2 Mother Hypertension Mother Thyroid Disease Mother Asthma Sister Hyperlipidemia Sister Hypertension Sister Relation Name Status Comments Brother Alive Father Mother Alive Sister Alive Social History Tobacco Use Types Packs/Day Years Used Date Smoking Tobacco: Every Day Cigarettes 0.5 10 Smokeless Tobacco: Never Tobacco Cessation:Ready to Q uit: Not Asked; Counseling Given: Not Answered Comments:0.25 pd 05/22/22 Alcohol Use Standard Drinks/Week Comments Not Currently 0 (1 standard drink = 0.6 oz pure alcohol) rarely- once every other month PHQ-2 Answer Date Recorded PHQ2 TOTAL SCORE 0 09/04/2022 Comments No Sex and Gender Information Value Date Recorded Sex Assigned at Female 06/14/2020 3:27 PM SALES PROFESSIONAL BILINGUAL Legal Sex Female 10:44 AM CDT Gender Identity Female 06/14/2020 3:27 PM SALES PROFESSIONAL BILINGUAL Sexual Orientation Straight 06/14/2020 3: 27 PM SALES PROFESSIONAL BILINGUAL Last Filed Vital Signs Vital Sign Reading Time Taken Comments Blood Pressure 120/90 09/10/2022 11:21 AM CDT ri ght forearm Pulse 78 09/10/2022 11:21 AM CDT Temperature 36.1 C (97 F) 09/10/2022 11:21 AM CDT Respiratory Rate 16 09/10/2022 11:21 AM CDT Oxygen Saturation 97% 09/10/2022 11:21 AM CDT room air Inhaled Oxygen Concentration - - Weight 197.3 kg (435 lb) 09/10/2022 11:21 AM CDT Height 167.6 cm (5' 6 ) 09/10/2022 11:21 AM CDT Body Mass Index 70.21 09/10/2022 11:21 AM CDT Plan of Treatment Health Maintenance Due Date Last Done Comments HEPATITIS C SCREENING 05/29/2003 PNEUMOCOCCAL VACCINE (1 of 2 - PCV) 2004 HEPATITIS B VACCINE (3 of 3 - 19+ 3-dose series) 04/16/2009 02/19/2009, 08/12/2005 PAP SMEAR 03/16/2022 03/16/2019 DIABETES-FOOT EXAM WITH MONOFILAMENT 05/09/2022 DIABETES-HGB A1C 11/05/2022 05/08/2022, , 12/05/2020, Additional history exists DIABETES-SERUM CREATININE 05/08/20232022, 06/18/2021, 12/05/2020, Additional history exists DIABETES RETINOPATHY SCREENING 10/15/2023 10/14/2021 COVID-19 VACCINE ( season) 2023 02/05/2021, 06/18/2020, 05/24/2020 DEPRESSION SCREENING 04/06/2024 05/08/2022, 07/26/19 22 DIABETES - URINE PROTEIN SCREENING 04/06/2024 INFLUENZA VACCINE (Season Ended) 2024 02/04/2022, 01/04/2017 DTAP/TDAP/TD VACCINES (8 - Td or Tdap) 05/03/2028 05/03/2018, 06/20/2008, 06/20/2008, Additional history exists ZOSTER VACCINE (1 of 2) 2035 HIV SCREENING Completed 03/16/2019 HIB VACCINE Aged Out No longer eligi ble based on patient's age to complete this topic HPV VACCINE Aged Out No longer eligi ble based on patient's age to complete this topic MENINGOCOCCAL (Group B) VACCINE SHARED DECISION-MAKING Aged Out No longer eligible based on patient's age to complete this topic MENINGOCOCCAL GROUPS A/C/Y/W VACCINE Aged Out No longer eligible based on patient's age to complete this topic Procedures Procedure Name Priority Date/Time Associated Diagnosis Comments COMPREHENSIVE METABOLIC PANEL Routine 05/08/2022 3:36 PM SALES PROFESSIONAL BILINGUAL Encounter for annual health examination HEMOGLOBIN A1C W EAG Routine 05/08/2022 3:36 PM SALES PROFESSIONAL BILINGUAL Encounter for annual health examination EYE EXAM 10/14/2021 HIV-1 HIV-2 ANTIBODY + HIV P24 AG PANEL Routine 03/16/2019 2:35 PM SALES PROFESSIONAL BILINGUAL Well woman exam with routine gynecological exam PAP IG LB CT+GC+TV+ HPV HR DNA Routine 03/16/2019 2:28 PM SALES PROFESSIONAL BILINGUAL Well woman exam with routine gynecological exam from Last 3 Months or Most Recently Relevant to Health Maintenance Results * (ABNORMAL) HEMOGLOBIN A1C W EAG (05/08/2022 3:36 PM SALES PROFESSIONAL BILINGUAL) Hemoglobin A1c 6.5(H) <5.7 % [facility] ACCOUNT BILL Estimated Average Glucose 140 mg/dL [facility] ACCOUNT BILL Comment: HbA1c Interpretation: Normal: < 5.7% Pre-diabetes: 5.7-6.4% Diabetes: Equal to or greater than 6.5% Test results diagnostic of diabetes should be repeated for c onfirmation. Treatment target values recommended by ADA and other clinica l organizations should be used to evaluate metabolic control in patients. This test should not replace glucose testing for patients wi th Type 1 diabetes, pediatric patients, or women. Falsely low HbA The [employer] Supervising Film Or Videotape Editor assay for the measurement of HbA1c is a National Glycohemoglobin Standardization Program (NGSP) certified method. Blood BLOOD SPECIMEN / Unknown 05/08/2022 3:36 PM SALES PROFESSIONAL BILINGUAL 05/08/2022 Narrative Resulting Agency Comment Lab Testing performed at: [address] [place] [id number] Jojo Rios MD LAB - CHEMISTRY ORDERABLES F inal Result [facility] ACCOUNT BILL [address] [place] [address] * (ABNORMAL) COMPREHENSIVE METABOLIC PANEL (05/08/2022 3:36 PM SALES PROFESSIONAL BILINGUAL) Glucose 122(H) 70 - 105 mg/dL [facility] ACCOUNT BILL BUN 9 7 - 18.7 mg/dL [facility] ACCOUNT BILL Creatinine 0.74 0.57 - 1.11 mg/dL [facility] ACCOUNT BILL eGFR by CKD-EPI >90 >=90 mL/min/1.7 3 m2 [facility] ACCOUNT BILL Sodium 140 136 - 145 mmol/L [facility] ACCOUNT BILL Potassium 4.4 3.5 - 5.1 mmol/L [facility] ACCOUNT BILL Chloride 101 98 - 107 mmol/L [facility] ACCOUNT BILL CO2 29 23 - 31 mmol/L [facility] ACCOUNT BILL Calcium 9.1 8.4 - 10.4 mg/dL [facility] ACCOUNT BILL Protein Total 7.4 6.4 - 8.3 gm/dL [facility] ACCOUNT BILL Albumin 4.1 3.5 - 5.2 gm/dL [facility] ACCOUNT BILL Bilirubin Total 0.4 0.2 - 1.2 mg/dL [facility] ACCOUNT BILL Alkaline Phosphatase 76 40 - 150 U/L [facility] ACCOUNT BILL AST 28 5 - 34 U/L [facility] ACCOUNT BILL ALT 36 0 - 61 U/L [facility] ACCOUNT BILL Blood BLOOD SPECIMEN / Unknown 05/08/2022 3:36 PM SALES PROFESSIONAL BILINGUAL 05/08/2022 Narrative Resulting Agency Comment Lab Testing performed at: [address] [place] [id number] [place] Jojo Rios MD LAB - CHEMISTRY ORDERABLES F inal Result Performing Organization Address [facility] de Phone Number [facility] ACCOUNT BILL [address] [place] [address] * EYE EXAM (10/14/2021) Anatomical Region Laterality Modality Other 10/14/2021 Narrative 10/14/2021 Ordered by an unspecified provider. us Scanned Document SCANNING ONLY Final Result * HIV-1 HIV-2 ANTIBODY + HIV P24 AG PANEL (03/16/2019 2:35 PM SALES PROFESSIONAL BILINGUAL) HIV Screen 4th Generation w Reflex Non Reactive Non Reactive [facility] ACCOUNT BILL Blood BLOOD SPECIMEN / Unknown 03/16/2019 2:35 PM SALES PROFESSIONAL BILINGUAL 03/16/2019 Narrative Resulting Agency Comment Lab Testing performed at: [address] [id number] [place] Rae Wade MD LAB - CHEMISTRY ORDERABLES Fi nal Result Performing Organization Address [facility] de Phone Number [facility] ACCOUNT BILL [address] [place] [address] * PAP IG LB CT+GC+TV+ HPV HR DNA (03/16/2019 2:28 PM SALES PROFESSIONAL BILINGUAL) Diagnosis [facility] ACCOUNT BILL Comment:NEGATIVE FOR INTRAEP ITHELIAL LESION OR MALIGNANCY. Specimen Adequacy [facility] ACCOUNT BILL Comment: Satisfactory for evaluation. Endocervical and/or squamous metaplastic cells (endocervical component) are present. Clinician Provided ICD10 [facility] ACCOUNT BILL Comment: Z01.419 Z00.00 Z87.42 Performed by [facility] ACCOUNT BILL Comment:Haylee Meraz Cytot echnologist (ASCP) Comment . [facility] ACCOUNT BILL Note [facility] ACCOUNT BILL Comment: The Pap smear is a screening test designed to aid in the detection of premalignant and malignant conditions of the uterine cervix. It is not a diagnostic procedure and should not be used as the sole means of detecting cervical cancer. Both false-positive and false-negative reports do occur. . IGLBP CPT Code Automation [facility] ACCOUNT BILL Comment: This liquid based ThinPrep(R) pap test was screened with the use of an image guided system. Human papillomavirus High Risk Negative Negative [facility] ACCOUNT BILL Comment: This nucleic acid amplification high-risk HPV test detects thirteen high-risk types (16,18,31,33,35,39,45,51,52,56,58,59,68) without differentiation. Chlamydia trachomatis CARMENCITA Negative Negative [facility] ACCOUNT BILL GC CARMENCITA Negative Negative [facility] ACCOUNT BILL Trichomonas vaginalis by CARMENCITA Negative Negative [facility] ACCOUNT BILL Pathology/Cytolog y PART OF UTERINE CERVIX / Unknown 03/16/2019 2:28 PM SALES PROFESSIONAL BILINGUAL 03/16/2019 Narrative [facility] ACCOUNT BILL - 03/18/2019 1:08 PM SALES PROFESSIONAL BILINGUAL Source.............Cervix Dates / Results....PCOS No. of containers..01 ThinPrep Vial Resulting Agency Comment Lab Testing performed at: [facility] [id number] Rae Wade MD LAB - PATHOLOGY/CYTOLOGY EVELYN HAGEN Final Result [facility] ACCOUNT BILL [address] [place] [address] from Last 3 Months or Most Recently Relevant to Health Maintenance Insurance [employer]ICA IFB Care Teams Rock Climbing Team Member Relationship Specialty Start Date End Date PcpRita - PCP - General 02/09/23 Tony Patel MD [address] [address] PCP - Attributed-[employer] [place] 05/07/23 [place] [id number] [address] Pulmonary Disease 05/22/22
--- OUTSIDE RECORDS SUMMARY | 2024-07-30 14:17 | XMS_ITS | Referral Summary ---
Author Organization [facility] Address [address] [place] [address] Care Team Providers Care Polystyrene Molding Machine Tender Name Role Phone Lane Arreguin MD Primary Care Provider [phone] Allergies Active Allergy Reactions Criticality Noted Date Comments Broccoli Rash Medium 05/06/2020 Lmoxkwlv-Zurngke-Fnidr Seed Xt Rash Medium 05/06/2020 Lisinopril Cough Low 03/10/2017 Losartan Other (See comments) Low 03/10/2017 Hypertension worsened. Medications buPROPion SR (WELLBUTRIN SR) 150 mg 12 hr tablet Take 1 tablet (150 mg total) by mouth daily. 90 tablet 1 8 Active metFORMIN (GLUCOPHAGE) 1,000 mg tablet Take 1 tablet (1,000 mg total) by mouth daily with breakfast. 90 tablet 1 8 Active metoprolol XL (TOPROL-XL) 25 mg 24 hr tablet Pt to take 1 pill twice a day 60 tablet 5 8 Active norgestimate-e thinyl estradiol (ORTHO TRI-CYCLEN,TRI BASIM) 0.18/0.215/0.2 5 mg-35 mcg (28) per tablet Take 1 tablet by mouth daily. 84 tablet 3 8 Active acetaminophen (TYLENOL) 500 mg tablet Take 1-2 tablets (500-1,000 mg total) by mouth every 6 (six) hours as needed for pain (1 tablet for mild to moderate pain. 2 tablets for severe pain) 30 tablet 1 Active LORazepam (ATIVAN) 0.5 mg tablet Take 0.5 mg by mouth every 6 hours. 4 021 Discontinued Active Problems Problem Noted Date Diagnosed Date Essential hypertension 11/10/2016 Assessment & Plan (03/10/2017 5:31 PM MOLDED PARTS INSPECTOR): Intolerant of lisinopril and losartan. Plan to stay with metoprolol 25mg bid. Assessment & Plan (02/20/2017 7:48 AM MOLDED PARTS INSPECTOR): Stop lisinopril since it is causing a cough. Start losartan 50mg daily. DASH diet Try to walk for exercise Decrease carb intake. Morbid obesity due to excess calories 11/10/2016 Assessment & Plan (03/10/2017 5:32 PM MOLDED PARTS INSPECTOR): BMI Follow-up includes: nutrition counseling and exercise counseling. Pt encourage to lose 20lbs.or 5% of her body weight. Assessment & Plan (02/20/2017 7:49 AM MOLDED PARTS INSPECTOR): Referral to Dr Alina Vegas for medical wt loss program Decrease carbs in diet Strive for a 10-20 lb wt loss Start walking for 30minutes daily. Generalized anxiety disorder 11/10/2016 Assessment & Plan (02/20/2017 7:50 AM MOLDED PARTS INSPECTOR): Stable on bupropion and lorazepam. 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 Hypertriglyceridemia 10/04/2014 Immunizations Immunization Administration Dates Next Due DTaP 06/06/2008,10/23/1995,10/19/1990 Hep B Vaccine 08/12/2005 IPV 10/23/1995,10/19/1990 Influenza, Unspecified 01/04/2017 MMR 10/23/1995 PPD TEST 07/28/2016,07/21/2016 Td, Unspecified 06/20/2008 Social History Tobacco Use Types Packs/Day Years Used Date Smoking Tobacco: Every Day Cigarettes Smokeless Tobacco: Never Alcohol Use Standard Drinks/Week Comments Yes 0 (1 standard drink = 0.6 oz pur e alcohol) socially Personal Safety Answer Date Recorded Getting School Help Needed Not on file 05/30 Comments No Sex and Gender Information Value Date Recorded Sex Assigned at Not on file Legal Sex Female 8:50 AM MOLDED PARTS INSPECTOR Gender Identity Not on file Sexual Orientation Not on file Last Filed Vital Signs Vital Sign Reading Time Taken Comments Blood Pressure 131/64 05/06/2020 11:44 AM MOLDED PARTS INSPECTOR Pulse 88 05/06/2020 11:44 AM MOLDED PARTS INSPECTOR Temperature 37 C (98.6 F) 05/06/2020 9:35 AM MOLDED PARTS INSPECTOR Respiratory Rate 16 05/06/2020 11:44 AM MOLDED PARTS INSPECTOR Oxygen Saturation 99% 05/06/2020 11:44 AM MOLDED PARTS INSPECTOR Inhaled Oxygen Concentration - - Weight 207.7 kg (458 lb) 01/21/2021 8:24 PM CDT Height 167.6 cm (5' 6 ) 01/21/2021 8:24 PM CDT Body Mass Index 73.92 01/21/2021 8:24 PM CDT Plan of Treatment Not on file Insurance [employer] GENERIC Care Teams Polystyrene Molding Machine Tender Relationship Specialty [place] [id number] [facility] [place] [address] PCP - General 05/06/20
--- OUTSIDE RECORDS SUMMARY | 2024-07-30 14:17 | XMS_ITS | Clinical Summary ---
Author Organization [facility] Address [address] [place] [address] Care Team Providers Care Yarn Cleaner Name Role Phone Lane Arreguin MD Primary Care Provider [phone] Allergies Active Allergy Reactions Criticality Noted Date Comments Broccoli Rash Medium 05/06/2020 Zjacfoik-Bqwdlda-Wklmk Seed Xt Rash Medium 05/06/2020 Lisinopril Cough [...] 11/10/2016 Assessment & Plan (03/10/2017 5:31 PM CROZER): Intolerant of lisinopril and losartan. Plan to stay with metoprolol 25mg bid. Assessment & Plan (02/20/2017 7:48 AM CROZER): Stop lisinopril since it is causing a cough. Start losartan 50mg daily. DASH diet Try to walk for exercise Decrease carb intake. Morbid obesity due to excess calories 11/10/2016 Assessment & Plan (03/10/2017 5:32 PM CROZER): BMI Follow-up includes: nutrition counseling and exercise counseling. Pt encourage to lose 20lbs.or 5% of her body weight. Assessment & Plan (02/20/2017 7:49 AM CROZER): Referral to Dr Alina Vegas for medical wt loss program Decrease carbs in diet Strive for a 10-20 lb wt loss Start walking for 30minutes daily. Generalized anxiety disorder 11/10/2016 Assessment & Plan (02/20/2017 7:50 AM CROZER): Stable on bupropion and lorazepam. PCOS (polycystic ovarian syndrome) 11/10/2016 Assessment & Plan (02/20/2017 7:50 AM CROZER): Working with her performance test consultant On metformin, and bp meds. Hypertriglyceridemia 10/04/2014 Immunizations Immunization Administration Dates Next Due DTaP 06/06/2008,10/23/1995,10/19/1990 Hep B Vaccine 08/12/2005 IPV 10/23/1995,10/19/1990 Influenza, Unspecified 01/04/2017 MMR 10/23/1995 PPD TEST 07/28/2016,07/21/2016 Td, Unspecified 06/20/2008 Surgical History Surgery Date Site/Laterality Comments CHOLECYSTECTOMY Medical History Medical History Date Comments Hypertension Hyperlipidemia PCOD (polycystic ovarian disease) Social History Tobacco Use Types Packs/Day Years [...] on file Legal Sex Female 8:50 AM CROZER Gender Identity Not on file Sexual Orientation Not on file Obstetrics History Last Filed Vital Signs Vital Sign Reading Time Taken Comments Blood Pressure 131/64 05/06/2020 11:44 AM CROZER Pulse 88 05/06/2020 11:44 AM CROZER Temperature 37 C (98.6 F) 05/06/2020 9:35 AM CROZER Respiratory Rate 16 05/06/2020 11:44 AM CROZER Oxygen Saturation 99% 05/06/2020 11:44 AM CROZER Inhaled Oxygen Concentration - - Weight 207.7 kg (458 lb) 01/21/2021 8:24 PM CDT Height 167.6 cm (5' 6 ) 01/21/2021 8:24 PM CDT Body Mass Index 73.92 01/21/2021 8:24 PM CDT Plan of Treatment Not on file Insurance [employer] Care Teams Yarn Cleaner Relationship Specialty Start [place] [address] [facility] [address] PCP - General 05/06/20
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
--- OUTSIDE RECORDS SUMMARY | 2024-07-30 14:17 | XMS_ITS | Clinical Summary ---
Author Organization [email or web address] Address [address] [place] [address] Care Team Providers Care American Sign Language Teacher Name Role Phone Nai Girard LUZ Primary Care Provider [phone] Allergies No known active allergies Medications LORazepam (ATIVAN) 0.5 mg tabletIndication s:MICHAEL (generalized anxiety disorder) Take 1 Tab by mouth every 6 hours as needed for Anxiety. 30 Tab 5 12/06/2013 Active cholecalciferol, vitamin D3, 1,000 unit Take 1,000 Units by mouth daily. Active Norgestimate-Eth inyl estradiol (SPRINTEC, 28,) 0.25-35 mg-mcg tablet Take 1 Tablet by mouth daily. 28 Tablet 11 05/05/2016 Active metFORMIN (GLUCOPHAGE) 1,000 mg tablet Take 1 Tablet (1,000 mg) by mouth 2 times daily with meals. 180 Tablet 1 05/05/2016 Active buPROPion HCl (WELLBUTRIN SR) 150 mg Sustained Release 12 hour tablet Take 1 Tablet (150 mg) by mouth 2 times daily. 180 Tablet 1 05/05/2016 Active metoprolol tartrate (LOPRESSOR) 25 mg tablet Take 25 mg by mouth 2 times daily. Active doxycycline hyclate (VIBRAMYCIN) 100 mg tablet Take 1 Tablet (100 mg) by mouth 2 times daily. 14 Tablet None 04/21/2017 Active methylPREDNISolo ne (MEDROL, ZEN,) 4 mg Tablets, Dose Pack As directed. 1 Package None 04/21/2017 Active amitriptyline (ELAVIL) 100 mg tablet Take 100 mg by mouth daily at bedtime. Active amLODIPine (NORVASC) 5 mg tablet Take 5 mg by mouth daily at bedtime. Active sulfamethoxazole -trimethoprim (BACTRIM DS) 800-160 mg tablet Take 1 Tablet by mouth 2 times daily. 20 Tablet 08/26/2018 Active Active Problems Problem Noted Date Diagnosed Date History of pancreatitis 01/23/2016 Acute drug-induced gout of right hand 08/17/2015 B12 deficiency 08/17/2015 Hypertriglyceridemia 10/04/2014 Irregular bleeding 01/04/2014 Morbid obesity with BMI of 60.0-69.9, adult 05/2013 PCOS (polycystic ovarian syndrome) 10/05/2013 MICHAEL (generalized anxiety disorder) 10/05/2013 Resolved Problems Problem Noted Date Diagnosed Date Resolved Date Acute pancreatitis without i nfection or necrosis 01/17/2016 01/23/2016 Morbid obesity 01/23/2016 Idiopathic acute pancreatiti s without infection or necrosis 01/23/2016 Immunizations Immunization Administration Dates Next Due (ADACEL/BOOSTRIX)(10 YR UP) TDAP VACCINE, 0.5ML, IM 06/06/2008 (INFANRIX)(6 WKS-6 YRS) DIPT HERIA, TETANUS TOXOIDS, AND ACCELLULAR PERTUSSIS VACCINE (DTAP), 0.5 ML IM 10/23/1995,10/19/1990 (IPOL)(6 WKS AND UP) POLIOVI RENETTA VACCINE, INACTIVATED (IPV), 3 DOSE, SUBCUT OR IM 10/23/1995,10/19/1990 (M-M-R II/PRIORIX)(12 MO UP) MEASLES, MUMPS AND RUBELLA VIRUS VACCINE, 0.5 ML IM/SUBCUT 10/23/1995 (TDVAX)(7 YRS UP) TETANUS AN D DIPHTHERIA TOXOIDS, ADSORBED (2 LF OF TETANUS TOXOID AND 2 LF OF DIPHTHERIA TOXOID), 0.5ML (PF), IM 06/20/2008 Hepatitis B Vaccine 08/12/2005 Skin Test TB 07/28/2016,07/21/2016 Family History Medical History Relation Name Comments Asthma Brother Heart Disease Father High Cholesterol Father Hypertension Father Stroke Father Stroke Maternal Grandmother Asthma Mother Depression Mother Diabetes Mother High Cholesterol Mother Hypertension Mother Relation Name Status Comments Brother Father Maternal Grandfather Maternal Grandmother Mother Alive Paternal Grandfather Paternal Grandmother Social History Tobacco Use Types Packs/Day Years Used Date Smoking Tobacco: Former Cigarettes 1 10 0 12/18/2003 - 12/17/2013 Smokeless Tobacco: Never Tobacco Cessation:Counseling Given: No Alcohol Use Standard Drinks/Week Comments No 0 (1 standard drink = 0.6 oz pur e alcohol) Comments No Sex and Gender Information Value Date Recorded Sex Assigned at Not on file Legal Sex Female 1:26 PM CDT Gender Identity Not on file Sexual Orientation Not on file Occupation Industry Job Start Date Job End Date Not on file Not on file Not on file Not on file Last Filed Vital Signs Vital Sign Reading Time Taken Comments Blood Pressure 133/103 08/26/2018 8:07 PM CDT Pulse 89 04/21/2017 10:30 PM BUFF WHEEL FABRICATOR Temperature 36.8 C (98.2 F) 08/26/2018 8:07 PM CDT Respiratory Rate 18 08/26/2018 8:07 PM CDT Oxygen Saturation 98% 08/26/2018 8:07 PM CDT Inhaled Oxygen Concentration - - Weight 197.3 kg (435 lb) 08/26/2018 6:33 PM CDT Height 167.6 cm (5' 6 ) 08/26/2018 6:33 PM CDT Body Mass Index 70.21 08/26/2018 6:33 PM CDT Plan of Treatment Health Maintenance Due Date Last Done Comments HEPATITIS B VACCINES (1 of 3 - 19+ 3-dose series) 2004 08/12/2005 DTAP/TDAP/TD VACCINES (5 - Td or Tdap) 06/20/2018 06/20/2008, 06/06/2008, 06/06/2008, Additional history exists Pre-Diabetes and Diabetes Screening 01/22/2019 01/23/2016, 10/02/2014, 10/03/2013 PAP SMEAR 03/06/2019 03/06/2016, 07/05/2012 CERVICAL CANCER SCREENING 03/06/2021 HPV/Cotest (21-29) 03/06/2021 03/06/2016 HPV/Cotest (30-65) 03/06/2021 03/06/2016 INFLUENZA VACCINE (#1) 2023 03/06/2016 HPV VACCINES Aged Out No longer eligi ble based on patient's age to complete this topic Procedures Procedure Name Priority Date/Time Associated Diagnosis Comments CERV/VAG CYTO SCREEN PAP W/HPV Routine 03/06/2016 9:16 PM BUFF WHEEL FABRICATOR Well woman exam with routine gynecological exam HEMOGLOBIN A1C Routine 01/23/2016 2:51 PM CDT Impaired fasting glucose from Last 3 Months or Most Recently Relevant to Health Maintenance Results * CERV/VAG CYTOPATH, THIN PREP BALANCE BRIDGE ASSEMBLER AND HPV (03/06/2016 9:16 PM BUFF WHEEL FABRICATOR) CLINICAL INFORMATION SEE COMMENT 03/12/2016 12:29 PM BUFF WHEEL FABRICATOR [facility] Comment:Information not prov ided LAST MENSTRUAL PERIOD SEE COMMENT 03/12/2016 12:29 PM BUFF WHEEL FABRICATOR [facility] Comment:INFORMATION NOT PROV IDED PREV PAP: SEE COMMENT 03/12/2016 12:29 PM BUFF WHEEL FABRICATOR [facility] Comment:INFORMATION NOT PROV IDED PREV BX: SEE COMMENT 03/12/2016 12:29 PM BUFF WHEEL FABRICATOR [facility] Comment:INFORMATION NOT PROV IDED SOURCE SEE COMMENT 03/12/2016 12:29 PM BUFF WHEEL FABRICATOR [facility] Comment:Information not prov ided ADEQUACY: SEE COMMENT 03/12/2016 12:29 PM BUFF WHEEL FABRICATOR [facility] Comment: Satisfactory for evaluation. Endocervical/transformation zone component present. Age and/or menstrual status not provided PAP INTERP SEE COMMENT 03/12/2016 12:29 PM BUFF WHEEL FABRICATOR [facility] Comment:Negative for intraep ithelial lesion or malignancy. COMMENT SEE COMMENT 03/12/2016 12:29 PM BUFF WHEEL FABRICATOR [facility] Comment: This Pap test has been evaluated with computer assisted technology. AIR PUMPER: SEE COMMENT 2015 12:29 PM BUFF WHEEL FABRICATOR [facility] Comment: TMK, CT(ASCP) CT screening location: [place] [address] [place] [address] HPV E6/E7 Not Detected Not Detected 03/12/2016 12:29 PM BUFF WHEEL FABRICATOR [facility] Comment: This test was performed using the APTIMA HPV Assay ([employer] This assay detects E6/E7 viral messenger RNA (mRNA) from 14 high-risk HPV types (16,18,31,33,35,39,45,51,52,56,58,59,66,68). Genital SWAB OF ENDOCERVIX / Unknown Collection / Unknown 03/06/2016 9:16 PM BUFF WHEEL FABRICATOR 03/06/2016 9:16 PM BUFF WHEEL FABRICATOR Narrative [facility] - 03/12/2016 12:29 PM BUFF WHEEL FABRICATOR FASTING: UNKNOWN Performing Organization Information: Site ID: [id number] Name: [facility] Address: [address] [place] [address] Director: Mishel Tony MD us Sherrie Singer MD PATHOLOGY/CYTOLOGY ORDE RABMARCIE Final Result [facility] * HEMOGLOBIN A1C (01/23/2016 2:51 PM CDT) HEMOGLOBIN A1C 5.6 4.0 - 6.0 % 01/23/2016 8:47 PM CDT [facility] Comment:Note: Effective as o f 04/27/2015 a new methodology, Turbidimetric inhibition immunoassay (TINIA),has been implemented. EST. AVG GLUCOSE, A1C 114 mg/dL 01/23/2016 8:47 PM CDT [facility] Blood Venipuncture - L ab Collect / Unknown 01/23/2016 2:51 PM CDT 01/23/2016 2:51 PM CDT us Sherrie Singer MD CHEMISTRY ORDERABLES Fi nal Result Performing Organization Address [facility]/ZIP Co de Phone Number [facility] CLIA# [id number] [address] [place] [address] from Last 3 Months or Most Recently Relevant to [place] [address] [facility] [facility] Advance Directives For more information, please contact: [phone] * Full Code (Latest Code Status on File) Date Activated Date Inactivated Comments 01/17/2016 1:12 AM 01/18/2016 7:02 PM Care Teams American Sign Language Teacher Relationship Specialty Start Date End Date Nai Girard FNP [address] [place] [address] PCP - General Nurse Practitioner Family 08/26/18
[2024-07-30 14:23] VITALS: BP 126/73; PULSE 72; RESP 14; TEMP 36.3; O2SAT 99
--- NOTE | 2024-07-30 15:06 | ED.GENADULT ---
HPI - General Adult General Chief complaint: Epistaxis Stated complaint: Nose Bleed Source: patient Mode of arrival: ambulatory Limitations: no limitations History of Present Illness HPI narrative: Patient presents for evaluation of epistaxis. She states her symptoms were present this morning around 0530. She was able to achieve hemostasis. She has not had any recurrence of her symptoms. She does not have a history of nosebleeds so was concerned about what was the underlying cause. She denies any nasal pain. She is not on blood thinners. No regular alcohol use. No trauma to the face. She woke from sleep with the bleed present. She has not concerns at the present time. Related Data Home Medications ?Medication ?Instructions ?Recorded ?Confirmed ?Last Taken ?Type amitriptyline 100 mg tablet 100 mg PO DAILY 04/30/20 07/30/24 Unknown History amlodipine 10 mg tablet (Norvasc) 10 mg PO DAILY 04/30/20 07/30/24 Unknown History metformin 1,000 mg tablet 250 mg PO BID 04/30/20 07/30/24 Unknown History multivit with minerals-iron 18 1 tablet PO DAILY 04/30/20 07/30/24 Unknown History mg-folic ac 400 mcg-vit K 25 mcg tablet (Adults Multivitamin) nebivolol 10 mg tablet (Bystolic) 10 mg PO DAILY 04/30/20 07/30/24 Unknown History atorvastatin 40 mg tablet 40 mg PO DAILY 06/06/23 07/30/24 Unknown History pantoprazole 40 mg tablet,delayed 40 mg PO DAILY 06/06/23 07/30/24 Unknown History release semaglutide 2 mg/dose (8 mg/3 mL) 2 mg subcut WEEKLY 06/06/23 06/06/23 Unknown History subcutaneous pen injector (Ozempic) metformin 500 mg tablet mg 07/30/24 Unknown History tirzepatide 10 mg/0.5 mL mg subcut 07/30/24 Unknown History subcutaneous pen injector (Mounjaro) Allergies Allergy/AdvReac Type Severity Reaction Status Date / Time losartan AdvReac Severe Chest Pain Verified 07/30/24 14:33 lisinopril AdvReac Intermediate Cough Verified 07/30/24 14:33 Review of Systems Review of Systems: CONSTITUTIONAL: Denies fever, chills, or sweats. EYES: Denies visual changes, redness, or discharge. ENT: Reports right sided epistaxis earlier, since resolved. Denies rhinorrhea, congestion, sore throat, or otalgia. CARDIOVASCULAR: Denies chest pain, palpitations, or edema. RESPIRATORY: Denies cough or dyspnea. GASTROINTESTINAL: Denies abdominal pain, nausea, vomiting, or diarrhea. GENITOURINARY: Denies dysuria or hematuria. SKIN: Denies rash or itching. MUSCULOSKELETAL: Denies back pain, joint pain, or myalgia. NEUROLOGIC: Denies headache, numbness, dizziness, or weakness. PSYCHIATRIC: Denies anxiety or depression. 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 HEAD: Normocephalic, atraumatic. EYES: PERRLA and EOMI. ENT: Nares clear, no rhinorrhea or epistaxis. Mucous membranes moist. Oropharynx without tonsillar hypertrophy exudate or other lesions. Bilateral TMs pearly cleary nonbulging NECK: Supple. No adenopathy or masses. No carotid bruits or JVD CHEST: Clear to auscultation. No respiratory distress. No wheezes rales or rhonchi HEART: Regular rate and rhythm. No murmur heard. Normal peripheral pulses. ABDOMEN: Soft, nontender, nondistended, normal active bowel sounds. EXTREMITIES: Normal range of motion. No edema. SKIN: Warm, dry, no rash. NEURO: No focal deficits. Alert and oriented x3. PSYCH: Normal mood and affect. Course Course Emergency Course: This is a 39-year-old female who presented for evaluation of a nosebleed she experienced earlier today but has since resolved. I did not appreciate any nasal lesions on exam. I recommended she sleep with a humidifier. She may want to hold off on her oral allergy medication for the time being as it may cause drying of her nasal mucosa. If she has recurrence of symptoms she should apply pressure. She should follow up with her primary and go to the ER if she has recurrence of bleeding that she cannot control. Pt in agreement with plan of care. Level of Care: Express Care Visit Vital Signs Vital signs: Vital Signs Temperature 36.3 C L 07/30/24 14:23 Pulse Rate 72 07/30/24 14:23 Respiratory Rate 14 07/30/24 14:23 Blood Pressure 126/73 07/30/24 14:23 Pulse Oximetry 99 07/30/24 14:23 Oxygen Delivery Room Air 07/30/24 14:23 Temperature 36.3 C L 07/30/24 14:23 Pulse Rate 72 07/30/24 14:23 Respiratory Rate 14 07/30/24 14:23 Blood Pressure 126/73 07/30/24 14:23 Pulse Oximetry 99 07/30/24 14:23 Oxygen Delivery Room Air 07/30/24 14:23 Medical Decision Making Vital Signs Vital Signs: Vital Signs Temperature 36.3 C L 07/30/24 14:23 Pulse Rate 72 07/30/24 14:23 Respiratory Rate 14 07/30/24 14:23 Blood Pressure 126/73 07/30/24 14:23 Pulse Oximetry 99 07/30/24 14:23 Oxygen Delivery Room Air 07/30/24 14:23 Temperature 36.3 C L 07/30/24 14:23 Pulse Rate 72 07/30/24 14:23 Respiratory Rate 14 07/30/24 14:23 Blood Pressure 126/73 07/30/24 14:23 Pulse Oximetry 99 07/30/24 14:23 Oxygen Delivery Room Air 07/30/24 14:23 Discharge Plan Discharge Clinical Impression: Epistaxis Patient Disposition: Home Condition: Stable Instructions: Antibiotic Form, Nosebleed (ED) Patient Language: Mohawk Prescriptions: No Action amoxicillin 875 mg tablet 875 mg PO Q12H 10 Days Qty: 20 0RF fluticasone propionate [Flonase Allergy Relief] 50 mcg/actuation spray,suspension 1 spray intranasal BID Qty: 16 0RF Rx Instructions: administer into each nostril fluconazole 150 mg tablet 150 mg PO DAILY Qty: 1 0RF Rx Instructions: administer on day 1 of therapy amlodipine [Norvasc] 10 mg Tablet 10 mg PO DAILY metformin 1,000 mg Tablet 250 mg PO BID nebivolol [Bystolic] 10 mg Tablet 10 mg PO DAILY amitriptyline 100 mg tablet 100 mg PO DAILY Adults Multivitamin 18 mg iron-400 mcg-25 mcg Tablet 1 tablet PO DAILY Ozempic 2 mg/dose (8 mg/3 mL) pen injector 2 mg SUBCUT WEEKLY pantoprazole 40 mg tablet,delayed release (DR/EC) 40 mg PO DAILY atorvastatin 40 mg tablet 40 mg PO DAILY benzonatate 200 mg capsule 200 mg PO TID PRN (Reason: cough) Qty: 30 0RF albuterol sulfate 90 mcg/actuation HFA aerosol inhaler 2 puff inhalation QID PRN (Reason: shortness of breath or wheezing) Qty: 8.5 0RF Mounjaro 10 mg/0.5 mL pen injector SUBCUT metformin 500 mg tablet Follow-up/Referrals: Jorge,Tony Menjivar MD [Primary Care Provider] - Time of Disposition: 15:03
== END 2024-07-30 15:08 | disposition home or self-care (01) ==
PROVIDERS: Emergency Provider Nurse Practitioner; PCP Family Medicine
DX: R04.0 Epistaxis (principal); Z87.891 Personal history of nicotine dependence; I10 Essential (primary) hypertension; E28.2 Polycystic ovarian syndrome
CPT/HCPCS: 99211; G0463

== ENCOUNTER 2024-09-14 14:32 | Emergency (ER) | payer BC, SELFPAY ==
[2024-09-14 14:37] VITALS: BP 119/86; PULSE 88; RESP 20; TEMP 37.2; O2SAT 96
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
[2024-09-14] MEDS: SILVER SULFADIAZINE 1% CR 50 GM JAR (*BKC) 1 APPLIC TOPICAL (14:55)
--- OUTSIDE RECORDS SUMMARY | 2024-09-14 17:15 | XMS_ITS | Patient Health Record ---
Author Organization [facility] Address [address] [place] [address] Care Team Providers Care Appliance Sales Associate Name Role Phone Layo Siu Primary Care Provider [phone] Allergies Allergen (clinical drug ingredient) Drug/Non Drug [...] and stressor- related disorder (F43.9) Referral Organization [facility] Referring Provider First Name Layo Referring Provider Last Name Salbador Referring Provider Speciality Psychiatry Referred Provider Specialty Behavioral [facility] Clinical Notes Italia Beavers 02/08/2024 01:55:47 PM [...] sliding scale fee. 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 12/01/23 BP 124/80, HR 75, Temp 96.6, RR 22, O2 98%, Wt 412lb, Ht 5'6 Today's visit: Patient is a 38-year-old female who presents for a psychiatric evaluation over [facility] and is located in [place]. PHQ-9 score of 8, MICHAEL-7 score of 13, MDQ with 8 yes. Currently, prescribed Amitriptyline 100 mg daily for anxiety. Presenting with anxiety, difficulty focusing and insomnia. Currently, on amitriptyline for MICHAEL with partial benefit. Denies depression. Reports anxiety and panic attacks have worsened since starting psychology professor program. Symptoms suggestive of ADHD, more inattentive [...] or be administered own oral medications per [facility] protocols. Provided informed consent with understanding of [...]
--- OUTSIDE RECORDS SUMMARY | 2024-09-14 17:15 | XMS_ITS | Clinical Summary ---
Author Organization [facility] [employer] Address [address] [place] [address] Care Team Providers Care Bilingual School Psychologist Name Role Phone Mili Cuevas MD Unavailable [phone] Pcp, Rita Lee Im-Fm Primary Care Provid er Unavailable Tony Patel MD Unavailable [phone] Source Comments [facility] [employer],non-owned Affiliates and Associated Physician Practices is amultiple site organization consisting of ambulatory clinics and hospital sitesin [place], [place] and [place]. This disclosure is being madepursuant to the Care Everywhere program and may not contain all information available regarding this patient. Last updated 17.[facility] [employer] Allergies Active Allergy Reactions Criticality Noted Date [...] hyperglycemia, without long-term current use of insulin ([facility]) Use 1 Each as directed 1 Each 05/16/19 23 Active blood glucose (Accu-Chek Guide) test stripIndications :Type 2 diabetes mellitus with hyperglycemia, without long-term current use of insulin ([facility]) Use 1 (one) strip daily before breakfast 100 strip 5 05/16/19 23 Active SOFTCLIX LANCETS MISCIndications: Type 2 diabetes mellitus with hyperglycemia, without long-term current use of insulin ([facility]) Use 1 device once daily 100 Each [...] Last Assessment & Plan: 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 Generalized anxiety [...] Sex Assigned at Female 06/14/2020 3:27 PM DIE CUTTER Legal Sex Female 10:44 AM CDT Gender Identity Female 06/14/2020 3:27 PM DIE CUTTER Sexual Orientation Straight 06/14/2020 3: 27 PM DIE CUTTER Last Filed Vital Signs Vital Sign Reading [...] 11:21 AM CDT Height 167.6 cm (5' 6) 09/10/2022 11:21 AM CDT Body Mass Index [...] COMPREHENSIVE METABOLIC PANEL Routine 05/08/2022 3:36 PM DIE CUTTER Encounter for annual health examination HEMOGLOBIN A1C W EAG Routine 05/08/2022 3:36 PM DIE CUTTER Encounter for annual health examination EYE EXAM 10/14/2021 HIV-1 HIV-2 ANTIBODY + HIV P24 AG PANEL Routine 03/16/2019 2:35 PM DIE CUTTER Well woman exam with routine gynecological exam PAP IG LB CT+GC+TV+ HPV HR DNA Routine 03/16/2019 2:28 PM DIE CUTTER Well woman exam with routine gynecological exam from Last 3 Months or Most Recently Relevant to Health Maintenance Results * (ABNORMAL) HEMOGLOBIN A1C W EAG (05/08/2022 3:36 PM DIE CUTTER) Hemoglobin A1c 6.5(H) <5.7 % [facility] RP [...] or women. Falsely low HbA The [employer] Project Manager assay for the measurement of HbA1c is a National Glycohemoglobin Standardization Program (NGSP) certified method. Blood BLOOD SPECIMEN / Unknown 05/08/2022 3:36 PM DIE CUTTER 05/08/2022 Narrative Resulting Agency Comment Lab Testing performed at: [address] [place] [id number] Jojo Rios MD LAB - CHEMISTRY ORDERABLES F inal Result [facility] ACCOUNT BILL [address] [place] [address] * (ABNORMAL) COMPREHENSIVE METABOLIC PANEL (05/08/2022 3:36 PM DIE CUTTER) Glucose 122(H) 70 - 105 mg/dL [facility] [...] BLOOD SPECIMEN / Unknown 05/08/2022 3:36 PM DIE CUTTER 05/08/2022 Narrative Resulting Agency Comment Lab Testing performed at: [address] [place] [id number] [place] Jojo Rios MD LAB - CHEMISTRY ORDERABLES F inal Result Performing Organization Address [facility] de Phone Number [facility] ACCOUNT BILL [address] [place] [address] * EYE EXAM (10/14/2021) Anatomical Region Laterality Modality Other 10/14/2021 Narrative 10/14/2021 Ordered by an unspecified provider. us Scanned Document SCANNING ONLY Final Result * HIV-1 HIV-2 ANTIBODY + HIV P24 AG PANEL (03/16/2019 2:35 PM DIE CUTTER) HIV Screen 4th Generation w Reflex Non Reactive Non Reactive [facility] ACCOUNT BILL Blood BLOOD SPECIMEN / Unknown 03/16/2019 2:35 PM DIE CUTTER 03/16/2019 Narrative Resulting Agency Comment Lab Testing performed at: [address] [id number] [place] Rae Wade MD LAB - CHEMISTRY ORDERABLES Fi nal Result Performing Organization Address [facility] de Phone Number [facility] ACCOUNT BILL [address] [place] [address] * PAP IG LB CT+GC+TV+ HPV HR DNA (03/16/2019 2:28 PM DIE CUTTER) Diagnosis [facility] ACCOUNT BILL Comment:NEGATIVE FOR INTRAEP [...] UTERINE CERVIX / Unknown 03/16/2019 2:28 PM DIE CUTTER 03/16/2019 Narrative [facility] ACCOUNT BILL - 03/18/2019 1:08 PM DIE CUTTER Source.............Cervix Dates / Results....PCOS No. of containers..01 ThinPrep Vial Resulting Agency Comment Lab Testing performed at: [facility] [id number] Rae Wade MD LAB - PATHOLOGY/CYTOLOGY EVELYN HAGEN Final Result [facility] ACCOUNT BILL [address] [place] [address] from Last 3 Months or Most Recently Relevant to Health Maintenance Insurance [employer] Care Teams Bilingual School Psychologist Relationship Specialty Start Date End Date PcpRita - PCP - General 02/09/23 Tony Patel MD [address] [address] PCP - Attributed-[employer] [place] 05/07/23 [place] [id number] [address] Pulmonary Disease 05/22/22
--- OUTSIDE RECORDS SUMMARY | 2024-09-14 17:15 | XMS_ITS | Clinical Summary ---
Author Organization [facility] Address [address] [place] [address] Care Team Providers Care Jar Filler Name Role Phone Shaji Nai ESCOBAR Primary Care Provider [phone] Allergies No known active allergies Medications LORazepam [...] PM CDT Pulse 89 04/21/2017 10:30 PM DRAFTER AUTOMOTIVE DESIGN LAYOUT Temperature 36.8 C (98.2 F) 08/26/2018 8:07 PM CDT Respiratory Rate 18 08/26/2018 8:07 PM CDT Oxygen Saturation 98% 08/26/2018 8:07 PM CDT Inhaled Oxygen Concentration - - Weight 197.3 kg (435 lb) 08/26/2018 6:33 PM CDT Height 167.6 cm (5' 6) 08/26/2018 6:33 PM CDT Body Mass Index [...] SCREEN PAP W/HPV Routine 03/06/2016 9:16 PM DRAFTER AUTOMOTIVE DESIGN LAYOUT Well woman exam with routine gynecological exam HEMOGLOBIN A1C Routine 01/23/2016 2:51 PM CDT Impaired fasting glucose from Last 3 Months or Most Recently Relevant to Health Maintenance Results * CERV/VAG CYTOPATH, THIN PREP DIESEL ENGINE I PIPE FITTER AND HPV (03/06/2016 9:16 PM DRAFTER AUTOMOTIVE DESIGN LAYOUT) CLINICAL INFORMATION SEE COMMENT 03/12/2016 12:29 PM DRAFTER AUTOMOTIVE DESIGN LAYOUT [facility] Comment:Information not prov ided LAST MENSTRUAL PERIOD SEE COMMENT 03/12/2016 12:29 PM DRAFTER AUTOMOTIVE DESIGN LAYOUT [facility] Comment:INFORMATION NOT PROV IDED PREV PAP: SEE COMMENT 03/12/2016 12:29 PM DRAFTER AUTOMOTIVE DESIGN LAYOUT [facility] Comment:INFORMATION NOT PROV IDED PREV BX: SEE COMMENT 03/12/2016 12:29 PM DRAFTER AUTOMOTIVE DESIGN LAYOUT [facility] Comment:INFORMATION NOT PROV IDED SOURCE SEE COMMENT 03/12/2016 12:29 PM DRAFTER AUTOMOTIVE DESIGN LAYOUT [facility] Comment:Information not prov ided ADEQUACY: SEE COMMENT 03/12/2016 12:29 PM DRAFTER AUTOMOTIVE DESIGN LAYOUT [facility] Comment: Satisfactory for evaluation. Endocervical/transformation zone component present. Age and/or menstrual status not provided PAP INTERP SEE COMMENT 03/12/2016 12:29 PM DRAFTER AUTOMOTIVE DESIGN LAYOUT [facility] Comment:Negative for intraep ithelial lesion or malignancy. COMMENT SEE COMMENT 03/12/2016 12:29 PM DRAFTER AUTOMOTIVE DESIGN LAYOUT [facility] Comment: This Pap test has been evaluated with computer assisted technology. LIGHTING FIXTURES DECORATOR: SEE COMMENT 2015 12:29 PM DRAFTER AUTOMOTIVE DESIGN LAYOUT [facility] Comment: TMK, CT(ASCP) CT screening location: [place] [address] [place] [address] HPV E6/E7 Not Detected Not Detected 03/12/2016 12:29 PM DRAFTER AUTOMOTIVE DESIGN LAYOUT [facility] Comment: This test was performed using the APTIMA HPV Assay ([employer] This assay detects E6/E7 viral messenger RNA (mRNA) from 14 high-risk HPV types (16,18,31,33,35,39,45,51,52,56,58,59,66,68). Genital SWAB OF ENDOCERVIX / Unknown Collection / Unknown 03/06/2016 9:16 PM DRAFTER AUTOMOTIVE DESIGN LAYOUT 03/06/2016 9:16 PM DRAFTER AUTOMOTIVE DESIGN LAYOUT Narrative [facility] - 03/12/2016 12:29 PM DRAFTER AUTOMOTIVE DESIGN LAYOUT FASTING: UNKNOWN Performing Organization Information: Site ID: SL Name: [facility] Address: [address] [address] Director: Mishel Tony MD us Sherrie Singer MD PATHOLOGY/CYTOLOGY ORDE RABLES Final Result [facility] * HEMOGLOBIN A1C (01/23/2016 2:51 PM CDT) HEMOGLOBIN A1C 5.6 4.0 - 6.0 % 01/23/2016 8:47 PM CDT [facility] Comment:Note: Effective as o f 04/27/2015 a new methodology, Turbidimetric inhibition immunoassay (TINIA),has been implemented. EST. AVG GLUCOSE, A1C 114 mg/dL 01/23/2016 8:47 PM CDT [facility] Blood Venipuncture - L ab Collect / Unknown 01/23/2016 2:51 PM CDT 01/23/2016 2:51 PM CDT us Sherrie Singer MD CHEMISTRY ORDERABLES Fi nal Result Performing Organization Address City/[facility]/ZIP Co de Phone Number [facility] [employer] [facility] CLIA# [id number] [place] [address] from Last 3 Months or Most Recently Relevant to Health Maintenance Insurance [facility] Advance Directives For more information, please contact: [phone] * Full Code (Latest Code Status on File) Date Activated Date Inactivated Comments 01/17/2016 1:12 AM 01/18/2016 7:02 PM Care Teams Jar Filler Relationship Specialty Start Date End Date Nai Girard FNP [address] [place] [id number] PCP - General Nurse Practitioner Family 08/26/18
--- OUTSIDE RECORDS SUMMARY | 2024-09-14 17:15 | XMS_ITS | Clinical Summary ---
Author Organization [facility] Address [address] [place] [address] Phone Care Team Providers Care Real Estate Investor Name Role Phone Tony Patel MD Primary Care Provider [phone] Dilan Turk MD Unavailable Suly Gerber DETECTIVE SERGEANT, CUPOLA TENDER HELPER Unavailable Mita Avila DETECTIVE SERGEANT, CUPOLA TENDER HELPER Unavailable [phone] Heidi Cordero MD Unavailable [phone] Allergies Active Allergy Reactions Criticality Noted Date [...] (see Comments),Shortness of Breath,Swelling High 11/04/2008 Medications multi-vitamin s (Multivitamin Adult) Tablet 12/09/19 23 Active Cholecalcifer ol (Vitamin D) 2000 UNIT Tablet 01/07/20 22 Active atorvastatin (LIPITOR) 40 MG Tablet 01/07/20 22 Active amitriptyline (ELAVIL) 100 MG Tablet Take 100 mg by mouth. 11/05/19 19 Active acetaminophen (TYLENOL) 500 MG Tablet Take 500-1,000 mg by mouth every 6 hours as needed. 05/06/19 21 Active IBUPROFEN PO Take by mouth. Ac tive albuterol 108 (90 Base) MCG/ACT Aerosol Solution take 2 Puffs by inhalation every 6 hours as needed for Wheezing or Cough. 18 g 1 03/17/20 24 Active Tirzepatide (Mounjaro) 10 MG/0.5ML Solution Auto-injector 10 mg by Subcutaneous route once a week. 6 mL 06/02/19 25 Active amitriptyline (ELAVIL) 100 MG Tablet Take 1 Tablet by mouth nightly. 90 Tablet 3 06/02/19 25 Active amLODIPine (NORVASC) 10 MG Tablet Take 1 Tablet by mouth daily. 90 Tablet 3 06/02/19 25 Active atorvastatin (LIPITOR) 40 MG Tablet Take 1 Tablet by mouth daily. 90 Tablet 3 06/02/19 25 Active pantoprazole (PROTONIX) 40 MG Tablet Delayed Response Take 1 Tablet by mouth daily. 90 Tablet 3 06/02/19 25 Active cyclobenzapri ne (FLEXERIL) 10 MG Tablet Take 1 Tablet by mouth 3 times daily as needed for Muscle spasms. 30 Tablet 08/17/19 25 Active saline nasal (AYR) GelIndication s:Nosebleed 1 Dose by Nasal route 3 times daily as needed for Irritation or Congestion. 14.1 g 08/26/19 25 Active Nebivolol HCl 10 MG Tablet Take 1 tablet by mouth once daily 30 Tablet 09/06/19 25 Active metFORMIN (GLUCOPHAGE) 500 MG Tablet Take 1 Tablet by mouth 2 times daily. 180 Tablet 1 02/29/20 24 025 Discontinued(T herapy completed) Nebivolol HCl 10 MG Tablet Take 1 Tablet by mouth daily. 90 Tablet 3 06/02/19 25 025 Discontinued mupirocin (BACTROBAN) 2 % OintmentIndic ations:Nosebl eed Apply 2 times daily for 10 days. Application Site: both nostrils 15 g 1 08/13/19 25 025 saline nasal (AYR) GelIndication s:Nosebleed 1 Dose by Nasal route 3 times daily as needed for Irritation or Congestion. 14.1 g 08/26/19 25 025 Discontinued Active Problems Problem Noted Date Diagnosed Date Nosebleed 08/03/2024 Intractable cluster headache syndrome 08/03/2024 Dizziness 08/03/2024 Anxiety 2024 Hyperlipidemia 12/01/2023 COVID-19 05/26/2023 PCOS [...] Encounters Date Type Department Care Team Description 09/04/2024 Refill [facility] Medical [facility] - Family Medicine - [place] [address] [place] [address] Tony Patel MD Medication Refill 09/01/2024 10:30 AM CDT Office Visit [facility] - Endocrinology - [place] [address] [place] [address] Dilan Turk MD Type 2 diabetes mellitus without complication, without long-term current use of insulin (Primary Dx); Class 3 severe obesity due to excess calories with serious comorbidity and body mass index (BMI) of 60.0 to 69.9 in adult; Medication dose changed Discharge Disposition: Discharged to home or Selfcare 08/30/2024 Travel 08/25/2024 1:30 PM CDT Office Visit [facility] [address] [place] [address] Heidi Cordero MD Nasal mucosa dry (Primary Dx); Nosebleed; Deviated nasal septum Discharge Disposition: Discharged to home or Selfcare 08/25/2024 Travel 08/15/2024 MyChart RX Renewal [facility] [address] [facility] [address] Tony Patel MD Medication Renewal Reviewed 08/11/2024 1:30 PM CDT Office Visit [facility] General Surgery [facility] [address] [address] Tony Patel MD Alkarmi, Ayham, MD Epistaxis, recurrent (Primary Dx); Nosebleed; Deviated nasal septum Discharge Disposition: Discharged to home or Selfcare 08/11/2024 Travel 08/03/2024 12:11 PM CDT - 08/03/2024 11:59 PM CDT Hospital Encounter [facility] [address] [place] [address] Tony Patel MD Discharge Disposition: Discharged to home or Selfcare 08/03/2024 11:30 AM CDT Office Visit [facility] [address] [place] [address] Tony Patel MD Nosebleed (Primary Dx); Intractable cluster headache syndrome, unspecified chronicity pattern; Dizziness; Morbid obesity (HCC) Discharge Disposition: Discharged to home or Selfcare 08/03/2024 Results Follow-Up [facility] [address] [place] [address] HEAD OR BRAIN WO CONTRAST 08/02/2024 10:23 AM CDT - 08/02/2024 11:54 AM CDT Emergency [facility] Emergency [address] [place] [address] Kell Osullivan APRN, GLROIA Epistaxis Discharge Disposition: Discharged to home or Selfcare 08/02/2024 Telephone [facility] [address] [place] [address] Tony Patel MD 08/02/2024 Travel from Last 3 Months Immunizations Immunization Administration [...] Sister 3 Nia High Cholesterol Sister 4 Meloney Polycystic Ovarian Syndrome Sister 4 Meloney Relation Name Status Comments Brother 1 Lucas Alive Brother 2 Mike Alive Father Sekou Mother Rebecca Alive Niece Alive Paternal Grandfather Genaro Sister 1 Tri Alive Sister 2 Carlene Alive Sister 3 Nia Alive Sister 4 Meloney Alive Social History Tobacco Use Types Packs/Day Years Used Date Smoking Tobacco: Every Day Cigarettes Smokeless Tobacco: Never Tobacco Cessation:Ready to Q uit: No; Counseling Given: Yes Alcohol Use Standard Drinks/Week Comments Not Currently 0 (1 standard drink = 0.6 oz pur e alcohol) [facility] Utilities Answer Date Recorded In the past 12 months has th e electric, gas, oil, or water company threatened to shut off services in your home? Patient declined 06/01/2024 Social Connection and Isolation Panel Answer Date Recorded In a typical week, how many times do you talk on the phone with family, friends, or neighbors? Patient declined 06/01/2024 How often do you get togethe r with friends or relatives? Patient declined 06/01/2024 How often do you attend religious or baptism serv ices? Patient declined 06/01/2024 Do you belong to any clubs o r organizations such as religious groups, unions, fraternal or athletic groups, or [...] Total Score - Questions 1-9 0 05/08 [facility] [place] of Occupat ional Health - Occupational Stress Questionnaire Answer Date Recorded [...] place to sleep or slept in a correction (including now)? No 03/18/2023 Housing Stability Vital [...] any time in the past 12 m [facility], were you homeless or living in a correction (including now)? No 06/01/2024 Sexually Active Control Partners Comments Yes Male Comments No Sex and Gender Information Value Date Recorded Sex Assigned at Not on file Legal Sex Female 10:44 PM CDT Gender Identity Not on file Sexual Orientation Not on file Last Filed Vital Signs Vital Sign Reading Time Taken Comments Blood Pressure 132/82 09/01/2024 10:38 AM CDT Pulse 100 09/01/2024 10:38 AM CDT Temperature 36 C (96.8 F) 09/01/2024 10:38 AM CDT Respiratory Rate 20 09/01/2024 10:38 AM CDT Oxygen Saturation 98% 09/01/2024 10:38 AM CDT Inhaled Oxygen Concentration - - Weight 182.8 kg (403 lb) 09/01/2024 10:38 AM CDT Height 167.6 cm (5' 6) 08/25/2024 1:34 PM CDT Body Mass Index 65.05 08/25/2024 1:34 PM CDT Plan of Treatment Upcoming Encounters Date Type Department Care Team (Late st Contact Info) Description 09/21/2024 9:00 AM CDT Office Visit [facility] - Family Medicine [facility] [address] [facility] [address] Tony Patel MD [address] [facility] [address] [place] [address] 03/09/2025 10:30 AM CLOTH SHRINKING MACHINE OPERATOR Office Visit [facility] - Endocrinology [facility] [address]2 [facility] [place] [address] Dilan Turk MD [address] [facility] [address] [place] [address] Health Maintenance Due Date Last Done Comments Diabetes: Eye Exam 1985 Hepatitis C Virus (HCV) Screening 1985 Pneumococcal Immunization Combined (1 of 2 - PCV) 2004 Hepatitis B Immunization (3 of 3 - 19+ 3-dose series) 04/16/2009 02/19/2009, 08/12/2005 SARS-COV-2 Immunization ( season) 2023 02/05/2021, 06/18/2020, 05/24/2020 Diabetes: Hemoglobin A1c 03/04/2025 025, 2024, 02/29/2024, Additional history exists Diabetes: Foot Exam 2025 2024 Diabetes: Nephropathy Screening 08/02/2025 08/02/2024, 11/30/2023, 11/28/2023, Additional history exists Pap Smear 03/22/2027 03/22/2024 DTaP/Tdap/Td Immunization (8 - Td or Tdap) 05/03/2028 05/03/2018, 06/20/2008, 06/20/2008, Additional history exists Cervical Cancer Screening (CCS) 03/22/2029 HPV/Cotest 03/22/2029 03/22/2024 Respiratory Syncytial Virus (RSV) Immunization (Adult) (1 - 1-dose 75+ series) 2060 Influenza Immunization Completed , 02/04/2022, 01/04/2017 Human Papillomavirus (HPV) Immunization Aged Out No longer eligible based on patient's age to complete this topic Meningococcal Immunization (ACWY) Aged Out No longer eligible based on patient's age to complete this topic Rotavirus Immunization Aged Out No lo nger eligible based on patient's age to complete this topic Procedures Procedure Name Priority Date/Time Associated Diagnosis Comments POCT GLYCOSYLATED HEMOGLOBIN Routine 09/01/2024 10:41 AM CDT Type 2 diabetes mellitus without complication, without long-term current use of insulin NASAL ENDOSCOPY,DX Routine 08/11/2024 1: 30 PM CDT Nosebleed Epistaxis, recurrent Deviated nasal septum CT HEAD OR BRAIN WO CONTRAST Stat with Interpretation 08/03/2024 12:38 PM CDT Nosebleed Intractable cluster headache syndrome, unspecified chronicity pattern Dizziness CBC WITH AUTO DIFFERENTIAL STAT 08/02/2024 11:00 AM CDT APTT (PTT) STAT 08/02/2024 11:00 AM CDT PROTIME (PT) (PROTHROMBIN TIME) STAT 08/02/2024 11:00 AM CDT CMP (COMPREHENSIVE METABOLIC PANEL) STAT 08/02/2024 11:00 AM CDT COMPLETE BLOOD COUNT (CBC) WITH DIFF STAT 08/02/2024 11:00 AM CDT GOLD TOP TUBE STAT 08/02/2024 10:56 AM CDT EXTRA TUBES STAT 08/02/2024 10:56 AM CDT HUMAN PAPILLOMA VIRUS (HPV) Routine 03/22/2024 10:44 AM CLOTH SHRINKING MACHINE OPERATOR Screening for malignant neoplasm of cervix PATHOLOGY CYTOLOGY FINANCIAL DEALERS Routine 03/22/2024 10:44 AM CLOTH SHRINKING MACHINE OPERATOR Screening for malignant neoplasm of cervix from Last 3 Months or Most Recently Relevant to Health Maintenance Results * POCT GLYCOSYLATED HEMOGLOBIN (09/01/2024 10:41 AM CDT) HGB-A1C 5.3 4 - 6 % Blood 09/01/2024 10:4 1 AM CDT Dilan Turk MD POINT OF CARE TESTING (MANUAL) F inal Result * NASAL ENDOSCOPY,DX (08/11/2024 1:30 PM CDT) Other Narrative Heidi Cordero MD - 08/11/2024 1:30 PM CDT Heidi Cordero MD 08/11/2024 3:30 PM Procedure: Rigid Nasal Endoscopy Anesthesia: Bilateral Nasal Cavities sprayed with lidocaine and oxymetazoline Detail: Rigid nasal endoscopy performed bilaterally. We visualized the entire septum as well as the inferior turbinate, middle turbinate, superior turbinate and sphenoethmoid recess. We also visualized the nasopharynx. Unless mentioned below these structures were normal. Septum was deviated to the right. Bilateral nasal cavity showed Right side deviated nasal septum, erythematous nasal septum there was a point of enlarged blood vessels in the middle of the right aspect of nasal septum, also the head of the inferior turbinates was erythematous EBL: none Heidi Cordero MD PROCEDURE/MINOR SURGICAL ORDERA BLES Final Result * CT HEAD OR BRAIN WO CONTRAST (08/03/2024 12:38 PM CDT) Anatomical Region Laterality Modality Head N/A Computed Tomogra phy 08/03/2024 2:1 2 PM CDT Impressions 08/03/2024 2:14 PM CDT IMPRESSION: No acute intracranial findings. Narrative 08/03/2024 2:14 PM CDT EXAM DESCRIPTION: CT HEAD OR BRAIN WO CONTRAST REASON FOR STUDY: C/o nosebleeds, dizziness and right frontal pain x 6 days TECHNIQUE: Axial images acquired through the brain without intravenous contrast. Images stored on PACS. Automated exposure control was used as a dose optimization technique for this examination. COMPARISON: CT head 08/10/2020 FINDINGS: BRAIN: No hemorrhage, edema or mass effect. No recent infarct. Normal white matter. EXTRA-AXIAL SPACES: No fluid collections. No masses. CALVARIUM: No fracture. SINUSES/MASTOIDS: No fluid or mucosal thickening. ORBITS: No significant abnormality. OTHER: No other significant abnormality. THIS IS AN ELECTRONICALLY VERIFIED FINAL REPORT 08/03/2024 2:12 PM - Electronically signed by Adelso Samaneigo M.D. RW: MARIA LUISA Report ID: [id number] Reading Location: [id number] Procedure Note Adelso Samaniego MD - 08/03/2024 EXAM DESCRIPTION: CT HEAD OR BRAIN WO CONTRAST REASON FOR STUDY: C/o nosebleeds, dizziness and right frontal pain x 6 days TECHNIQUE: Axial images acquired through the brain without intravenous contrast. Images stored on PACS. Automated exposure control was used as a dose optimization technique for this examination. COMPARISON: CT head 08/10/2020 FINDINGS: BRAIN: No hemorrhage, edema or mass effect. No recent infarct. Normal white matter. EXTRA-AXIAL SPACES: No fluid collections. No masses. CALVARIUM: No fracture. SINUSES/MASTOIDS: No fluid or mucosal thickening. ORBITS: No significant abnormality. OTHER: No other significant abnormality. THIS IS AN ELECTRONICALLY VERIFIED FINAL REPORT 08/03/2024 2:12 PM - Electronically signed by Adelso Samaniego M.D. RW: MARIA LUISA Report ID: [id number] Reading Location: [id number] IMPRESSION: No acute intracranial findings. [facility] Gary Patel MD IMG CT ORDERABLES Final R esult * (ABNORMAL) CBC with Auto Differential (08/02/2024 11:00 AM CDT) WBC 6.83 4.00 - 12.00 10(3)/mcL 08/02/2024 11:12 AM CDT [facility] RBC 5.42(H) 3.80 - 5.30 10(6)/mcL 08/02/2024 11:12 AM CDT [facility] HEMOGLOBIN (HGB) 15.0 12.0 - 15.8 g/dL 08/02/2024 11:12 AM CDT [facility] HEMATOCRIT (HCT) 45.3 36.0 - 47.0 % 08/02/2024 11:12 AM CDT [facility] MCV 83.6 82.0 - 96.0 fL 08/02/2024 11:12 AM CDT [facility] MCH 27.7 26.0 - 34.0 pg 08/02/2024 11:12 AM CDT [facility] MCHC 33.1 31.0 - 36.0 g/dL 08/02/2024 11:12 AM CDT [facility] PLATELET COUNT 255 140 - 440 10(3)/mcL 08/02/2024 11:12 AM CDT [facility] RDW 13.5 11.8 - 15.5 % 08/02/2024 11:12 AM CDT [facility] MPV 10.4 9.7 - 12.4 fL 08/02/2024 11:12 AM CDT [facility] NEUTROPHILS 66.1 47.0 - 73.0 % 08/02/2024 11:12 AM CDT [facility] LYMPHOCYTES 25.5 18.0 - 42.0 % 08/02/2024 11:12 AM CDT [facility] MONOCYTES 6.4 4.0 - 12.0 % 08/02/2024 11:12 AM CDT [facility] EOSINOPHILS 1.3 0.0 - 5.0 % 08/02/2024 11:12 AM CDT [facility] BASOPHILS 0.7 0.0 - 1.0 % 08/02/2024 11:12 AM CDT [facility] ABSOLUTE NEUTROPHILS 4.51 1.60 - 7.70 10(3)/mcL 08/02/2024 11:12 AM CDT [facility] ABSOLUTE LYMPHOCYTES 1.74 1.30 - 3.20 10(3)/[facility] 08/02/2024 11:12 AM CDT [facility] ABSOLUTE MONOCYTES 0.44 0.20 - 1.00 10(3)/[facility] 08/02/2024 11:12 AM CDT [facility] ABSOLUTE EOSINOPHIL 0.09 0.00 - 0.40 10(3)/[facility] 08/02/2024 11:12 AM CDT [facility] ABSOLUTE BASOPHILS 0.05 0.00 - 0.10 10(3)/[facility] 08/02/2024 11:12 AM CDT [facility] NRBC PER 100 WBC 0 08/03/19 25 11:12 AM CDT [facility] Blood Venipuncture / Unknown 08/02/2024 11:00 AM CDT 08/02/2024 11:10 AM CDT us Kell Osullivan APRN, CUPOLA TENDER HELPER HEMATOLOGY ORDERAB LES Final Result [facility] [address] [place] [address] * PTT (08/02/2024 11:00 AM CDT) PTT 28 24 - 36 sec 08/02/2024 11:27 AM CDT [facility] Blood Venipuncture / Unknown 08/02/2024 11:00 AM CDT 08/02/2024 11:10 AM CDT Narrative [facility] - 08/02/2024 11:27 AM CDT Therapeutic range for unfractionated heparin at 0.3-0.7 U/mL is an aPTT value in the range of 71-100 seconds. Critical value for the PTT test is >= 122 seconds. Kell Osullivan APRN, CNP HEMATOLOGY ORDERAB LES Final Result Performing Organization Address [facility] Co de Phone Number [facility] [address] [place] [address] * PT / INR (08/02/2024 11:00 AM CDT) PROTIME-PATIENT 13.0 11.6 - 14.8 sec 08/02/2024 11:27 AM CDT [facility] INR 1.0 0.9 - 1.2 08/02/2024 11:27 AM CDT [facility] Comment: Therapeutic Ranges INR = 2.0-3.0: Venous thromb, atrial fib, pul embolism, tissue heart valve, ami. INR = 2.5-3.5: Mechanical heart valve Critical value for INR is >/= 4.5 Blood Venipuncture / Unknown 08/02/2024 11:00 AM CDT 08/02/2024 11:10 AM CDT Kell Osullivan APRN, CNP HEMATOLOGY ORDERAB LES Final Result Performing Organization Address [facility] de Phone Number [facility] [address] [place] [address] * CMP (08/02/2024 11:00 AM CDT) SODIUM 139 136 - 145 mmol/L 08/02/2024 11:33 AM CDT [facility] POTASSIUM 4.0 3.5 - 5.1 mmol/L 08/02/2024 11:33 AM CDT [facility] CHLORIDE 107 98 - 107 mmol/L 08/02/2024 11:33 AM CDT [facility] CO2, VENOUS 25 22 - 30 mmol/L 08/02/2024 11:33 AM T [facility] ANION GAP 11.0 <18.0 mmol/L 08/02/2024 11:33 AM T [facility] GLUCOSE 94 70 - 99 mg/dL 08/02/2024 11:33 AM CDT [facility] BUN 12 5 - 18 mg/dL 08/02/2024 11:33 AM T [facility] CREATININE, BLOOD 0.76 0.60 - 1.00 mg/dL 08/02/2024 11:33 AM T [facility] BUN/CREATININE RATIO 16 12 - 20 ratio 08/02/2024 11:33 AM T [facility] TOTAL PROTEIN 7.6 6.0 - 8.0 g/dL 08/02/2024 11:33 AM T [facility] ALBUMIN 3.8 3.5 - 5.0 g/dL 08/02/2024 11:33 AM T [facility] A/G RATIO 1.0 1.0 - 2.2 08/02/2024 11:33 AM T [facility] CALCIUM 8.9 8.7 - 10.5 mg/dL 08/02/2024 11:33 AM T [facility] T BILI 0.4 0.2 - 1.2 mg/dL 08/02/2024 11:33 AM T [facility] SGOT (AST) 18 <43 U/L 08/02/2024 11:33 AM T [facility] SGPT (ALT) 15 <56 U/L 08/02/2024 11:33 AM [facility] ALKALINE PHOSPHATASE 76 40 - 150 U/L 08/02/2024 11:33 AM T [facility] GFR, ESTIMATED >60 >=60 08/02/2024 11:33 AM T [facility] Comment: Creatinine Clearance is the preferred criteria for selecting drug dose adjustments in renally impaired patients. The GFR is provided as additional pertinent clinical information. GFR is reported in mL/min/1.73 sq m. Calculation based on the Chronic Kidney Disease Epidemiology Collaboration (CKD- EPI) equation refit without adjustment for race. GFR, EST. >60 >=60 025 11:33 AM CDT [facility] GFR, EST. NONAFRICAN >60 >=60 08/02/2024 11:33 AM CDT [facility] Blood Venipuncture / Unknown 08/02/2024 11:00 AM CDT 08/02/2024 11:10 AM CDT Kell Osullivan APRN, CNP CHEMISTRY ORDERABL ES Final Result Performing Organization Address City/[facility]/ZIP Co de Phone Number [facility] [address] [place] [address] * Gold Top Tube (08/02/2024 10:56 AM CDT) Blood No Phlebotomy Charged / Unknown 08/02/2024 10:56 AM CDT 08/02/2024 11:12 AM CDT Kell Osullivan APRN, GLORIA CHEMISTRY ORDERABL ES Final Result Performing Organization Address [facility] Co de Phone Number [facility] [address] [place] [address] * PATHOLOGY CYTOLOGY FINANCIAL DEALERS (03/22/2024 10:44 AM CLOTH SHRINKING MACHINE OPERATOR) SPECIMEN ADEQUACY Satisfactory for evaluation. Endocervical/transf ormation zone component is absent. 04/01/2024 12:20 PM CLOTH SHRINKING MACHINE OPERATOR [facility] DESCRIPTIVE DIAGNOSIS NEGATIVE FOR INTRAEPITHELIAL LESIONS OR MALIGNANCY. 04/01/2024 12:20 PM CLOTH SHRINKING MACHINE OPERATOR [facility] at [address] CLOTH SHRINKING MACHINE OPERATOR Automated Examination Analysis of this sample has been assisted by an automated imaging and review system ([employer] System, [employer], [place], [place]). This case is further evaluated and finalized by a online content coordinator and/or pathologist. 04/01/2024 12:20 PM CLOTH SHRINKING MACHINE OPERATOR [facility] Disclaimer The PAP smear is a screening [...] recommended every three years for women 21-29, Co-Testing, a PAP test in conjunction with an HPV (Human Papillomavirus) test for women ages 30-65, and no PAP or HPV testing for women under the age of 21 or older than 65 unless clinically indicated. 04/01/2024 12:20 PM CLOTH SHRINKING MACHINE OPERATOR [facility] Case Report Gynecologic Cytology Report Case: [id number] Authorizing Provider: Mita Avila APRN, CNP Collected: 03/22/2024 10:44 AM Ordering Location: [facility] - Received: 03/22/2024 10:44 AM Obstetrics & Gynecology [facility] First Screen: Natalia Raman Rescreen: Luisa Sorenson Specimen: TP Screen, Cervix/Endocervix 04/01/2024 12:20 PM CLOTH SHRINKING MACHINE OPERATOR [facility] Other CERVIX UTERI STRUCTURE / Unknown Non-Phlebotomy Collection / Unknown 03/22/2024 10:44 AM CLOTH SHRINKING MACHINE OPERATOR 03/22/2024 10:44 AM CLOTH SHRINKING MACHINE OPERATOR us Mita Avila APRN, CNP PATHOLOGY/CYTOLOGY ORDER ISAAC Final Result [facility] [address] [place] [address], * HUMAN PAPILLOMA VIRUS (HPV) (03/22/2024 10:44 AM CLOTH SHRINKING MACHINE OPERATOR) HPV TYPE 16 NEGATIVE NEGATIVE 03/23/2024 12:09 PM CLOTH SHRINKING MACHINE OPERATOR [facility] Comment: A negative high-risk HPV result does [...] TYPE 18 NEGATIVE NEGATIVE 03/23/2024 12:09 PM [facility] Comment: A negative high-risk HPV result does [...] TYPES, PCR NEGATIVE NEGATIVE 03/23/2024 12:09 PM [facility] Comment: The following Other High Risk types [...] SCREENING OR DIAGNOSTIC SCREENING 03/23/2024 12:09 PM [facility] Other Non-Phlebotomy Collection / Unknown 03/22/2024 10:44 AM CLOTH SHRINKING MACHINE OPERATOR 03/22/2024 10:44 AM CLOTH SHRINKING MACHINE OPERATOR Narrative [facility] - 03/23/2024 12:09 PM [facility] This test was performed using MARIANO 5800 Real Time PCR. us Mita Avila APRN, CUPOLA TENDER HELPER LAB SEND OUTS Final Re sult [facility] [address] [place] [address], [facility] [address] [place] [address] from Last 3 Months or Most Recently Relevant to Health Maintenance Insurance [facility] Care Teams Real Estate Investor Relationship Specialty Start Date End Date Tony Patel MD [address] [facility] [address] [place] [address] PCP - General Family Medicine 03/24/23 Dilan Turk MD [address]2 [facility] [address] [place] [id number] Consulting Physician Endocrinology 05/28/23 Suly Gerber APRN, CUPOLA TENDER [address] [place] [address] Nurse Practitioner Advanced Practice Nurse 04/02/23 Mita Avila APRN, [employer] T[employer]ER [address]PER [address] [facility] [place] [address] Nurse Practitioner Advanced Practice Nurse 03/16/24 Heidi Cordero MD #2 [facility] [place] [address] Consulting Physician Otolaryngology 08/10/24
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
--- OUTSIDE RECORDS SUMMARY | 2024-09-14 17:15 | XMS_ITS ---
Author Organization [facility] Address [address] [place] [address] Care Team Providers Care Psych Specialist Name Role Phone Layo Siu Primary Care Provider REASON FOR VISIT New Patient Psych Eval Encounters Encounter Location Date Provider Diagnosis [address] [place] [address] 01/28/2024 Layo Siu Plan Of Treatment No Information Progress Notes * Todd LAMOB:1985 ( 39 yo F)Acc No.[id number]:01/28/2024 UNLOCKED PROGRESS NOTE Patient: Damaris GORDON Provider: DADA Be :1985 A ge:38 Y S ex:Female Date:01/28/2024 Address:[address] [place], [place] [id number] Subjective: * Chief Complaints: * 1 . New Patient Psych Eval. * Medical History: Objective: * Vitals: Assessment: Plan: * Treatment: * * Electronic signature of Arline Siu on 09/14/2024 at 05:15 PM CDT Sign off status: Pending * Provider: DADA Be Date: Generated for Mango soto/Pablo/eTransmitting on: 0 09/14/2024 05:15 PM CDT
--- OUTSIDE RECORDS SUMMARY | 2024-09-14 17:15 | XMS_ITS | Continuity of Care Document ---
Author Organization [facility] Address [address] [place] [address] Phone Care Team Providers Care [place] Patrol Lieutenant Name Role Phone Jaron Herbert MD Unavailable Unavailable Advance Directives Directive Yes / No Effective Date File Name No Information Encounters Encounter Description Practice Location Reason(s) For Visit Diagnoses Date Provider Providers Copied on Encounter [facility], [address], [place], [place], [id number], tel:[phone] [facility] No Information Piedad Salmeron. [address] [facility] [address], [place], [address], [place]. tel: [phone] Referring Provider: Lex Durán, [address], [place], [address]. tel:[phone] [facility], [address], [place], [place], [address], tel:[phone] [facility] Idiopathic acute pancreatitis without infection or necrosis 7 Piedad Salmeron. [address], [place], [address], [place]. tel: [phone] Family History Family Member Type Diagnosis Age At Onset No Information Payers Payer name Insurance type Covered alliance party ID Authoriza micah(s) TAM CI [id number] Social History Type Description Quantity Date Captured Comments Sex Female Smoking Status No Information Chief Complaint And Reason For Visit No Information Reason For Referral Reason For Referral No Information History Of Present Illness Encounter Date Complaint History Of Prese nt Illness No Information Functional Status Date Functional Assessmen t No Information Instructions Date Instruction Additional Infor mation No Information Assessments Type Assessment Date No Information Patient Care Teams Name Effective Dates (start - stop) Status Members No Information
--- OUTSIDE RECORDS SUMMARY | 2024-09-14 17:15 | XMS_ITS | Referral Summary ---
Author Organization [facility] Address [address] [place] [address] Care Team Providers Care Fluid Pump Operator Name Role Phone Lane Arreguin MD Primary Care Provider [phone] Allergies Active Allergy Reactions Criticality Noted Date Comments Broccoli Rash Medium 05/06/2020 Asupgpkn-Eqrazbi-Qdrzm Seed Xt Rash Medium 05/06/2020 Lisinopril Cough [...] 11/10/2016 Assessment & Plan (03/10/2017 5:31 PM TRAVELING OPERATOR): Intolerant of lisinopril and losartan. Plan to stay with metoprolol 25mg bid. Assessment & Plan (02/20/2017 7:48 AM TRAVELING OPERATOR): Stop lisinopril since it is causing a cough. Start losartan 50mg daily. DASH diet Try to walk for exercise Decrease carb intake. Morbid obesity due to excess calories 11/10/2016 Assessment & Plan (03/10/2017 5:32 PM TRAVELING OPERATOR): BMI Follow-up includes: nutrition counseling and exercise counseling. Pt encourage to lose 20lbs.or 5% of her body weight. Assessment & Plan (02/20/2017 7:49 AM TRAVELING OPERATOR): Referral to Dr Alina Vegas for medical wt loss program Decrease carbs in diet Strive for a 10-20 lb wt loss Start walking for 30minutes daily. Generalized anxiety disorder 11/10/2016 Assessment & Plan (02/20/2017 7:50 AM TRAVELING OPERATOR): Stable on bupropion and lorazepam. PCOS (polycystic ovarian syndrome) 11/10/2016 Assessment & Plan (02/20/2017 7:50 AM TRAVELING OPERATOR): Working with her shake splitter On metformin, and bp meds. Hypertriglyceridemia 10/04/2014 [...] on file Legal Sex Female 8:50 AM TRAVELING OPERATOR Gender Identity Not on file Sexual Orientation Not on file Last Filed Vital Signs Vital Sign Reading Time Taken Comments Blood Pressure 131/64 05/06/2020 11:44 AM TRAVELING OPERATOR Pulse 88 05/06/2020 11:44 AM TRAVELING OPERATOR Temperature 37 C (98.6 F) 05/06/2020 9:35 AM TRAVELING OPERATOR Respiratory Rate 16 05/06/2020 11:44 AM TRAVELING OPERATOR Oxygen Saturation 99% 05/06/2020 11:44 AM TRAVELING OPERATOR Inhaled Oxygen Concentration - - Weight 207.7 kg (458 lb) 01/21/2021 8:24 PM CDT Height 167.6 cm (5' 6) 01/21/2021 8:24 PM CDT Body Mass Index 73.92 01/21/2021 8:24 PM CDT Plan of Treatment Not on file Insurance [employer] Care Teams Fluid Pump Operator Relationship Specialty Start [place] [address] [facility] [place] [address] PCP - General 05/06/20
--- OUTSIDE RECORDS SUMMARY | 2024-09-14 17:15 | XMS_ITS | Clinical Summary ---
Author Organization [facility] Address [address] [place] [address] Care Team Providers Care Box Order Person Name Role Phone Lane Arreguin MD Primary Care Provider [phone] Allergies Active Allergy Reactions Criticality Noted Date Comments Broccoli Rash Medium 05/06/2020 Fpskeunm-Qruyuja-Mcpqb Seed Xt Rash Medium 05/06/2020 Lisinopril Cough [...] 11/10/2016 Assessment & Plan (03/10/2017 5:31 PM YARD GOODS SALESPERSON): Intolerant of lisinopril and losartan. Plan to stay with metoprolol 25mg bid. Assessment & Plan (02/20/2017 7:48 AM YARD GOODS SALESPERSON): Stop lisinopril since it is causing a cough. Start losartan 50mg daily. DASH diet Try to walk for exercise Decrease carb intake. Morbid obesity due to excess calories 11/10/2016 Assessment & Plan (03/10/2017 5:32 PM YARD GOODS SALESPERSON): BMI Follow-up includes: nutrition counseling and exercise counseling. Pt encourage to lose 20lbs.or 5% of her body weight. Assessment & Plan (02/20/2017 7:49 AM YARD GOODS SALESPERSON): Referral to Dr Alina Vegas for medical wt loss program Decrease carbs in diet Strive for a 10-20 lb wt loss Start walking for 30minutes daily. Generalized anxiety disorder 11/10/2016 Assessment & Plan (02/20/2017 7:50 AM YARD GOODS SALESPERSON): Stable on bupropion and lorazepam. 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 Hypertriglyceridemia 10/04/2014 [...] on file Legal Sex Female 8:50 AM YARD GOODS SALESPERSON Gender Identity Not on file Sexual Orientation Not on file Obstetrics History Last Filed Vital Signs Vital Sign Reading Time Taken Comments Blood Pressure 131/64 05/06/2020 11:44 AM YARD GOODS SALESPERSON Pulse 88 05/06/2020 11:44 AM YARD GOODS SALESPERSON Temperature 37 C (98.6 F) 05/06/2020 9:35 AM YARD GOODS SALESPERSON Respiratory Rate 16 05/06/2020 11:44 AM YARD GOODS SALESPERSON Oxygen Saturation 99% 05/06/2020 11:44 AM YARD GOODS SALESPERSON Inhaled Oxygen Concentration - - Weight 207.7 kg (458 lb) 01/21/2021 8:24 PM CDT Height 167.6 cm (5' 6) 01/21/2021 8:24 PM CDT Body Mass Index 73.92 01/21/2021 8:24 PM CDT Plan of Treatment Not on file Insurance [employer] Care Teams Box Order Person Relationship Specialty Start [place] [address] [facility] [place] [address] PCP - General 05/06/20
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
--- OUTSIDE RECORDS SUMMARY | 2024-09-14 17:16 | XMS_ITS | Continuity of Care Document ---
Author Organization [facility] Address [address] [place] [address] Phone Care Team Providers Care Assistant Activities Director Name Role Phone Jaron Herbert MD Unavailable Unavailable Advance Directives Directive Yes / No Effective Date File Name No Information Encounters Encounter Description Practice Location Reason(s) For Visit Diagnoses Date Provider Providers Copied on Encounter [facility], [address], [place], [place], [id number], tel:[phone] [facility] No Information Piedad Salmeron. [address] , [facility] [address], [place], [address], [place]. tel: [phone] Referring Provider: Lex Durán, [address], [place], [address]. tel:[phone] [facility], [address], [place], [place], [id number], tel:[phone] [facility] Idiopathic acute pancreatitis without infection or necrosis 7 Piedad Salmeron. [address], [place], [address], [place]. tel: [phone] Family History Family Member Type Diagnosis Age At Onset No Information Payers Payer name Insurance type Covered republican ID Authoriza micah(s) TAM [id number] Social History Type Description Quantity Date Captured [...]
== END 2024-09-14 15:05 | disposition home or self-care (01) ==
PROVIDERS: Emergency Provider Nurse Practitioner Family; PCP Family Medicine
DX: T20.12XA Burn of first degree of lip(s), initial encounter (principal); T22.10XA Burn of first degree of shoulder and upper limb, except wrist and hand, unspecified site, initial encounter; X03.0XXA Exposure to flames in controlled fire, not in building or structure, initial encounter; I10 Essential (primary) hypertension; E28.2 Polycystic ovarian syndrome; Z87.891 Personal history of nicotine dependence
CPT/HCPCS: 16020; 99213; A9270; G0463